=== PATIENT | male | born 1960 | race Two or more races ===

== ENCOUNTER 2019-02-18 02:11 | Emergency (ER) | payer MEDICAID ==
[~2019-02-18] VITALS: Ht 172.7 cm; Wt 100.9 kg
[~2019-02-18 02:11] MED LIST: METF-370 PO
[2019-02-18 03:21] LABS: Basophils # (auto) 0.1 uL; Basophils % (auto) 1.1 % (0.0-2.0); Eosinophils # (auto) 0 uL; Eosinophils % (auto) 0.4 % (0.0-7.0); Hematocrit 35.7 % (41.0-53.0); Hemoglobin 12.6 g/dL (13.5-17.5); Lymphocytes # (auto) 1.1 uL; Mean Corpuscular Hemoglobin 39.3 pg (28.0-32.0); Mean Corpuscular Hgb Conc. 35.2 g/dL (32.0-36.0); Mean Corpuscular Volume 111.6 fL (80.0-100.0); Monocytes # (auto) 0.5 uL; Monocytes % (auto) 5.2 % (0.0-12.0); Neutrophils # (auto) 8.3 uL; Neutrophils % (auto) 82.3 % (37.0-80.0); Platelet Count (auto) 103 10^3/uL (140-450); Red Cell Distribution Width 13.5 % (11.8-14.3); White Blood Cell 10.1 10^3/uL (4.4-10.8)
[2019-02-18 03:36] LABS: INR 1.32 (0.9-1.15)
[2019-02-18 03:39] LABS: Albumin 2.6 g/dL (3.4-5.0); Anion Gap 16 (5-15); BUN/Creatinine Ratio 15.8; Blood Urea Nitrogen 12 mg/dL (7-18); Calcium 7.7 mg/dL (8.5-10.1); Carbon Dioxide 21 mmol/L (21-32); Chloride 103 mmol/L (98-107); GFR African American 135 mL/min; GFR Non-African American 112 mL/min; Glucose 229 mg/dL (74-106); Lipase 163 U/L (73-393); Potassium 3.7 mmol/L (3.5-5.1); Sodium 140 mmol/L (136-145)
[2019-02-18 03:39] LABS: Urine Bacteria FEW /hpf (None Seen); Urine Blood Negative /uL (Negative); Urine Hyaline Cast FEW /lpf (0 - 2); Urine WBC 1 /hpf (0 - 3)
[2019-02-18 03:44] LABS: Alanine Aminotransferase 40 U/L (16-61); Alkaline Phosphatase 72 U/L (45-117); Aspartate Aminotransferase 60 U/L (15-37); Bilirubin, Total 1.9 mg/dL (0.2-1.0)
[2019-02-18] MEDS ORDERED: ONDANSETRON HCL 4 MG/2 ML VIAL IV ONE (10:15)
[2019-02-18] MEDS ORDERED: OCTREOTIDE ACETATE 500 MCG in SODIUM CHL 0.9% 99 ML IV SCH (10:15)
[2019-02-18] MEDS ORDERED: OCTREOTIDE ACETATE 100 MCG in SODIUM CHL 0.9% 50 ML IV ONE (10:15)
[2019-02-18] MEDS ORDERED: NOREPINEPHRINE 8 MG/250ML KIT 250 ML IV ONE (10:27)
[2019-02-18] MEDS ORDERED: ETOMIDATE (2MG/ML) 20ML VIAL IV ONE ×2 (10:30→10:31)
[2019-02-18] MEDS ORDERED: SUCCINYLCHOLINE CHLORIDE 20 MG/ML 10ML VIAL IV ONE ×2 (10:30→10:31)
[2019-02-18 10:48] LABS: Hemoglobin 10.1 g/dL (13.5-17.5)
[2019-02-18 10:49] LABS: Hematocrit 29.5 % (41.0-53.0)
[2019-02-18] MEDS ORDERED: MIDAZOLAM DRIP 50 mg/50mL 50 ML IV ONE (10:53)
[2019-02-18] MEDS ORDERED: LORazepam 2MG/ML-1ML VIAL IV PRN (11:00)
[2019-02-18] MEDS ORDERED: SODIUM CHLORIDE 0.9% 2,000 ML IV ONE (11:00)
[2019-02-18] MEDS ORDERED: MORPHINE SULFATE 4 MG/ML SYR/VIAL IV PRN ×2 (11:00)
[2019-02-18] MEDS ORDERED: PROMETHAZINE HCL 25 MG/ML 1ML IV PRN (11:00)
[2019-02-18] MEDS ORDERED: NITROGLYCERIN 0.4 MG SL TAB SL PRN (11:00)
[2019-02-18] MEDS ORDERED: PHYTONADIONE (VIT K)10 MG/ML 1ML VIAL SUBCUT ONE ×2 (11:00→13:30)
[2019-02-18] MEDS ORDERED: PANTOPRAZOLE 40 MG/10 ML VIAL INJ IV ONE (11:00)
[2019-02-18] MEDS ORDERED: MORPHINE SULF INJ 2 MG/ML SYRINGE 1ML IV PRN (11:00)
[2019-02-18] MEDS ORDERED: PROPOFOL 100 ML IV ONE (11:06)
[2019-02-18] MEDS ORDERED: EPINEPHrine HCL 1 MG/10 ML SYRG ONE (11:14)
[2019-02-18] MEDS ORDERED: PROPOFOL 100 ML IV SCH (12:56)
[2019-02-18] MEDS ORDERED: MIDAZOLAM DRIP 50 mg/50mL 50 ML IV SCH (12:56)
[2019-02-18] MEDS ORDERED: SODIUM CHLORIDE 0.9% 1,000 ML IV SCH (13:00)
[2019-02-18] MEDS ORDERED: NOREPINEPHRINE 8 MG/250ML KIT 250 ML IV SCH (13:00)
[2019-02-18 13:44] VITALS: BP 127/56
[2019-02-18] MEDS ORDERED: SODIUM BICARBONATE 8.4 % INJ 50ML VIAL IV ONE (13:45)
[2019-02-18] MEDS ORDERED: PANTOPRAZOLE 40 MG/10 ML VIAL INJ IV SCH (22:00)
[2019-02-18] MEDS ORDERED: CEFOTETAN 1GM/D5W 50ML BAG 50 ML IV SCH (22:00)
== END 2019-02-18 14:08 | disposition short-term general hospital (02) ==
LOC: ER 02:17 → OVERFLOW 02:18 → UNDOADMIN 02:18 → ER 14:08
DX: K92.2 Gastrointestinal hemorrhage, unspecified (principal); D50.0 Iron deficiency anemia secondary to blood loss (chronic); I95.9 Hypotension, unspecified; E11.65 Type 2 diabetes mellitus with hyperglycemia; I10 Essential (primary) hypertension; F17.210 Nicotine dependence, cigarettes, uncomplicated
CPT/HCPCS: 31500; 36415; 36430; 36600; 51702; 71045; 74018; 74176; 80053; 81001; 82805; 83690; 83880; 84484; 85014; 85018; 85025; 85610; 85730; 86850; 86900; 86901; 86920; 87070; 87205; 93005; 96365; 96368; 96372; 96375; 99291; 99292; C9113; J0330; J2250; J2405; J2704; J3430; P9016; P9017; 94002

== ENCOUNTER 2019-03-17 14:07 | Inpatient (IN) | payer BC, MEDICAID ==
[~2019-03-17] VITALS: Ht 172.7 cm; Wt 53.0 kg
[2019-03-17] MEDS ORDERED: MORPHINE SULFATE 4 MG/ML SYR/VIAL IV ONE (15:00)
[2019-03-17] MEDS ORDERED: ONDANSETRON HCL 4 MG/2 ML VIAL IV ONE (15:00)
[2019-03-17 15:12] LABS: Basophils # (auto) 0 uL; Eosinophils # (auto) 0.2 uL; Eosinophils % (auto) 3.6 % (0.0-7.0); Mean Corpuscular Volume 105.6 fL (80.0-100.0); Monocytes # (auto) 0.7 uL; Neutrophils # (auto) 3.7 uL; Nucleated Red Blood Cells % 0.1 %
[2019-03-17 15:14] LABS: Basophils % (auto) 0.6 % (0.0-2.0); Hematocrit 35.6 % (41.0-53.0); Hemoglobin 11.9 g/dL (13.5-17.5); Lymphocytes # (auto) 1.3 uL; Lymphocytes % (auto) 22.3 % (10.0-50.0); Mean Corpuscular Hemoglobin 35.2 pg (28.0-32.0); Mean Corpuscular Hgb Conc. 33.4 g/dL (32.0-36.0); Monocytes % (auto) 11.8 % (0.0-12.0); Neutrophils % (auto) 61.7 % (37.0-80.0); Platelet Count (auto) 86 10^3/uL (140-450); Red Blood Cells 3.37 10^6/uL (4.5-5.90)
[2019-03-17 15:17] LABS: Red Cell Distribution Width 21.1 % (11.8-14.3)
[2019-03-17 15:18] LABS: Alanine Aminotransferase 46 U/L (16-61); Albumin 2.5 g/dL (3.4-5.0); Anion Gap 7 (5-15); Aspartate Aminotransferase 52 U/L (15-37); Blood Urea Nitrogen 4 mg/dL (7-18); Calcium 7.8 mg/dL (8.5-10.1); Carbon Dioxide 25 mmol/L (21-32); Chloride 102 mmol/L (98-107); Glucose 227 mg/dL (74-106); Magnesium 1.7 mg/dL (1.6-2.6); Potassium 3.7 mmol/L (3.5-5.1); Sodium 134 mmol/L (136-145)
[2019-03-17 15:23] LABS: Alkaline Phosphatase 125 U/L (45-117); BUN/Creatinine Ratio 4.2; Bilirubin, Total 1.3 mg/dL (0.2-1.0); GFR African American 103 mL/min; GFR Non-African American 86 mL/min; INR 1.19 (0.9-1.15); Partial Thromboplastin Time 30.8 sec (23.64-32.05); Total Protein 7.7 g/dL (6.4-8.2)
[2019-03-17] MEDS ORDERED: TEMAZEPAM 15 MG CAP PO PRN (16:30)
[2019-03-17] MEDS ORDERED: MORPHINE SULFATE 4 MG/ML SYR/VIAL IV PRN (16:30)
[2019-03-17] MEDS ORDERED: LACTULOSE 20Gm/30ML SOLN PO PRN (16:30)
[2019-03-17] MEDS ORDERED: MORPHINE SULF INJ 2 MG/ML SYRINGE 1ML IV PRN (16:30)
[2019-03-17] MEDS ORDERED: NITROGLYCERIN 0.4 MG SL TAB SL PRN (16:30)
[2019-03-17] MEDS: SODIUM CHLORIDE 0.9% 1,000 ML IV SCH (17:29)
[2019-03-17 17:59] LABS: CRP High Sensitivity 0.94 mg/dL (< 0.3)
[2019-03-17 19:36] VITALS: BP 120/67
--- NOTE | 2019-03-17 19:43 | NUR ---
Telemetry admit from ER ZOLTAN CARBALLO admitted to Telemetry unit after SBAR received. Patient oriented to Ayush Gary, primary RN, unit, room, bed, and unit policies regarding patient care and visiting hours. Patient now on continuous telemetry monitoring, tele box # 25 and telemetry reading on arrival to unit is sinus rhythm. Patient weighed by bedscale and encouraged to call if they need something. All questions and concerns addressed, patient verbalized understanding.
[2019-03-17 21:00] VITALS: BP 107/66
[2019-03-17] MEDS: MORPHINE SULFATE 4 MG/ML SYR/VIAL IV PRN (21:50)
[2019-03-17 23:06] LABS: Alcohol, Urine < 3.0 mg/dL (0-5); Amphetamine Screen, Urine NEGATIVE (NEGATIVE); Barbiturate Scree,Urine NEGATIVE (NEGATIVE); Benzodiazephine Screen, Urine NEGATIVE (NEGATIVE); Cannabinoid Screen, Urine NEGATIVE (NEGATIVE); Cocaine Screen, Urine NEGATIVE (NEGATIVE); Opiate Scree,Urine POSITIVE (NEGATIVE); Phencyclidine Screen, Urine NEGATIVE (NEGATIVE)
[2019-03-18] VITALS (7 sets, daily range): BP systolic 116–129; BP diastolic 67–75
[2019-03-18] MEDS: MORPHINE SULFATE 4 MG/ML SYR/VIAL IV PRN ×2 (02:25→08:25)
[2019-03-18 05:56] LABS: Basophils # (auto) 0 uL; Basophils % (auto) 0.5 % (0.0-2.0); Eosinophils # (auto) 0.2 uL; Eosinophils % (auto) 5.6 % (0.0-7.0); Hematocrit 32.4 % (41.0-53.0); Hemoglobin 11.3 g/dL (13.5-17.5); Lymphocytes # (auto) 1.2 uL; Lymphocytes % (auto) 27.9 % (10.0-50.0); Mean Corpuscular Hemoglobin 36.4 pg (28.0-32.0); Mean Corpuscular Hgb Conc. 34.8 g/dL (32.0-36.0); Mean Corpuscular Volume 104.7 fL (80.0-100.0); Monocytes # (auto) 0.5 uL; Monocytes % (auto) 12.2 % (0.0-12.0); Neutrophils # (auto) 2.4 uL; Neutrophils % (auto) 53.8 % (37.0-80.0); Nucleated Red Blood Cells % 0.1 %; Platelet Count (auto) 54 10^3/uL (140-450); Red Blood Cells 3.09 10^6/uL (4.5-5.90); White Blood Cell 4.4 10^3/uL (4.4-10.8)
[2019-03-18 05:58] LABS: Red Cell Distribution Width 20.9 % (11.8-14.3)
[2019-03-18 06:18] LABS: Chloride 105 mmol/L (98-107); Potassium 3.6 mmol/L (3.5-5.1); Sodium 137 mmol/L (136-145)
[2019-03-18 06:28] LABS: Alanine Aminotransferase 37 U/L (16-61); Albumin 2.5 g/dL (3.4-5.0); Alkaline Phosphatase 109 U/L (45-117); Anion Gap 7 (5-15); Aspartate Aminotransferase 43 U/L (15-37); BUN/Creatinine Ratio 5.9; Bilirubin, Total 1.6 mg/dL (0.2-1.0); Blood Urea Nitrogen 3 mg/dL (7-18); Calcium 7.4 mg/dL (8.5-10.1); Carbon Dioxide 25 mmol/L (21-32); Cholesterol 81 mg/dL (< 200); GFR African American 215 mL/min; GFR Non-African American 177 mL/min; Glucose 113 mg/dL (74-106); HDL Cholesterol 35 mg/dL (40-59); LDL Cholesterol 50 mg/dL (< 100); Total Protein 6.7 g/dL (6.4-8.2); Triglycerides 40 mg/dL (< 150)
[2019-03-18] MEDS: SODIUM CHLORIDE 0.9% 1,000 ML IV SCH ×2 (06:30→18:55)
--- NOTE | 2019-03-18 07:30 | NUR ---
Opening Shift Note RECEIVED REPORT FROM NOC RN. Assumed care of patient, awake and alert. No S/S of distress/SOB or pain. BED IN LOWEST, LOCKED POSITION WITH SIDERAILS UP x2 AND CALL LIGHT WITHIN REACH. Instructed on POC and to call for assist PRN, will continue to monitor for changes Q1hr and PRN.
[2019-03-18] MEDS ORDERED: LACT10SO60 PO (08:35)
[2019-03-18] MEDS: PANTOPRAZOLE 40 MG TAB PO SCH (09:47)
[2019-03-18] MEDS: NITROGLYCERIN 0.2MG/HR TOPICAL PATCH TD SCH (09:48)
--- NOTE | 2019-03-18 12:17 | NUR ---
Received referral to pt and . They do not speak Serbian. called daughter, Sharmila and social work program coordinator spoke with her on the phone. worker's compensation claims examiner explained the form to the daughter. The daughter indicated that she understood. Gave the form to the .
--- NOTE | 2019-03-18 12:20 | NUR ---
PATIENT C/O CHEST PAIN. WILL PERFORM EKG.
--- NOTE | 2019-03-18 12:27 | NUR ---
EKG PERFORMED. EKG READ BY MALLORY HERMOSILLO. DR. HERMOSILLO ADVISES THAT EKG IS NORMAL.
--- NOTE | 2019-03-18 12:57 | NUR ---
DR. TURNER AT BEDSIDE.
--- NOTE | 2019-03-18 12:57 | NUR ---
DR. WHEAT AT BEDSIDE.
--- NOTE | 2019-03-18 13:15 | NUR ---
DR. HOLGUIN AT BEDSIDE.
[2019-03-18] MEDS: KETOROLAC TROMETH 30 MG/ML 1ML VIAL IV PRN (13:29)
[2019-03-18] MEDS: PROPRANOLOL HCL 20 MG TAB PO SCH ×2 (14:39→22:09)
--- NOTE | 2019-03-18 16:00 | NUR ---
PATIENT REPORTS THAT HE WALKS FINE AND DOES NOT NEED P.T.
--- NOTE | 2019-03-18 19:20 | NUR ---
Opening Shift Note Received report from Raymond FIGUEROA. Assumed care of patient, awake and alert. No S/S of distress/SOB or pain. Instructed on POC and to call for assist PRN, will continue to monitor for changes Q1hr and PRN.
[2019-03-18] MEDS ORDERED: ONDANSETRON HCL 4 MG/2 ML VIAL IV PRN (21:00)
--- NOTE | 2019-03-18 21:00 | NUR ---
Temp is 100.6, cooling measures initiated, will continue to monitor.
[2019-03-18] MEDS: COLCHICINE 0.6 MG CAP PO SCH (22:08)
--- NOTE | 2019-03-18 22:20 | NUR ---
Latest temp is 99.3.
[2019-03-18] MEDS ORDERED: ACETAMINOPHEN 500 MG TAB PO PRN (22:45)
[2019-03-19 05:09] VITALS: BP 122/64
[2019-03-19] MEDS: KETOROLAC TROMETH 30 MG/ML 1ML VIAL IV PRN (06:25)
[2019-03-19] MEDS: PROPRANOLOL HCL 20 MG TAB PO SCH (06:26)
[2019-03-19 06:54] LABS: Basophils # (auto) 0 uL; Eosinophils # (auto) 0.2 uL; Hemoglobin 11.2 g/dL (13.5-17.5); Lymphocytes # (auto) 1.3 uL
[2019-03-19 07:00] LABS: Basophils % (auto) 0.3 % (0.0-2.0); Eosinophils % (auto) 3.5 % (0.0-7.0); Hematocrit 31.7 % (41.0-53.0); Mean Corpuscular Hemoglobin 36.7 pg (28.0-32.0); Mean Corpuscular Hgb Conc. 35.2 g/dL (32.0-36.0); Mean Corpuscular Volume 104.2 fL (80.0-100.0); Monocytes # (auto) 0.8 uL; Monocytes % (auto) 10.8 % (0.0-12.0); Neutrophils # (auto) 4.8 uL; Neutrophils % (auto) 67.4 % (37.0-80.0); Nucleated Red Blood Cells % 0.1 %; Platelet Count (auto) 66 10^3/uL (140-450); Red Blood Cells 3.05 10^6/uL (4.5-5.90); Red Cell Distribution Width 20.4 % (11.8-14.3); White Blood Cell 7.1 10^3/uL (4.4-10.8)
[2019-03-19 07:11] LABS: BUN/Creatinine Ratio 9.8; Calcium 7.5 mg/dL (8.5-10.1); Magnesium 1.9 mg/dL (1.6-2.6); Potassium 3.7 mmol/L (3.5-5.1)
--- NOTE | 2019-03-19 08:00 | NUR ---
Opening Shift Note Assumed care of patient, awake and alert. No S/S of distress/SOB, 6/10 anterior chest wall pain. Patient have been medicated with Toradol 30mg IV at 0625 as reported by warehouse shift supervisor. Instructed on POC and to call for assist PRN, will continue to monitor for changes Q1hr and PRN.
[2019-03-19] MEDS: SODIUM CHLORIDE 0.9% 1,000 ML IV SCH (08:18)
[2019-03-19 09:00] VITALS: BP 128/67
[2019-03-19] MEDS ORDERED: COLCHICINE 0.6 MG CAP PO ONE (09:00)
[2019-03-19] MEDS: NITROGLYCERIN 0.2MG/HR TOPICAL PATCH TD SCH (10:00)
[2019-03-19] MEDS: COLCHICINE 0.6 MG CAP PO SCH (10:00)
--- NOTE | 2019-03-19 11:00 | NUR ---
No complaints of chest pain at this time.
[2019-03-19] MEDS: PANTOPRAZOLE 40 MG TAB PO SCH (11:07)
--- NOTE | 2019-03-19 12:27 | NUR ---
Latest Temp-98.0. Will continue care.
--- NOTE | 2019-03-19 14:00 | NUR ---
Discharge instructions given as ordered. Encourage to follow up with PMD Dr. Yaya Maria in 1-2 weeks #[phone] as instructed. All questions and concerns addressed. Patient verbalized understanding. Medication reconciliation form completed and copy given to patient. IV removed with catheter intact, pressure dressing applied. Telemetry unit returned to ICU. Patient taken to vehicle via wheelchair with all personal belongings, accompanied by staff and family member. No distress noted at time of departure.
== END 2019-03-19 14:00 | disposition home or self-care (01) | DRG 314 ==
LOC: ER 14:13 → TELE 14:14 → TELE-EAST 19:43
PROVIDERS: ADMIT Internal Medicine; ATTEND Internal Medicine
DX: I31.9 Disease of pericardium, unspecified (principal); E43 Unspecified severe protein-calorie malnutrition; I24.9 Acute ischemic heart disease, unspecified; K76.6 Portal hypertension; F17.210 Nicotine dependence, cigarettes, uncomplicated; I10 Essential (primary) hypertension; E11.65 Type 2 diabetes mellitus with hyperglycemia; K74.60 Unspecified cirrhosis of liver; F10.21 Alcohol dependence, in remission; Z71.41 Alcohol abuse counseling and surveillance of alcoholic; Z90.49 Acquired absence of other specified parts of digestive tract; Z83.3 Family history of diabetes mellitus; Z82.61 Family history of arthritis
CPT/HCPCS: 36415; 71045; 80048; 80053; 80061; 80307; 82550; 83735; 84443; 84484; 85025; 85379; 85610; 85652; 85730; 86141; 87081; 93005; 93306; 94761; 96374; 96375; 96376; G0378; J1885; J2405

== ENCOUNTER 2020-02-06 15:47 | Emergency (ER) | payer BC, OTHER ==
[~2020-02-06] VITALS: Ht 172.7 cm; Wt 90.7 kg
[~2020-02-06 15:47] MED LIST changes: +LACT10SO60 PO
[2020-02-06] MEDS ORDERED: ASPirin 81 mg TAB PO ONE (16:45)
[2020-02-06 18:35] LABS: Basophils # (auto) 0 10 ^3/uL (0-0.2); Hematocrit 39.1 % (41.0-53.0); Hemoglobin 13.3 g/dL (13.5-17.5); Lymphocytes # (auto) 1.7 10 ^3/uL (0.4-5.4); Mean Corpuscular Hgb Conc. 34.1 g/dL (32.0-36.0); Monocytes # (auto) 0.7 10 ^3/uL (0-1.3); Nucleated Red Blood Cells % 0.1 %; White Blood Cell 5.3 10^3/uL (4.4-10.8)
[2020-02-06 18:37] LABS: Basophils % (auto) 0.6 % (0.0-2.0); Eosinophils # (auto) 0.2 10 ^3/uL (0-0.8); Eosinophils % (auto) 4.5 % (0.0-7.0); Lymphocytes % (auto) 32.6 % (10.0-50.0); Mean Corpuscular Hemoglobin 36.9 pg (28.0-32.0); Mean Corpuscular Volume 108.2 fL (80.0-100.0); Monocytes % (auto) 13.9 % (0.0-12.0); Neutrophils # (auto) 2.5 10 ^3/uL (1.6-8.6); Neutrophils % (auto) 48.4 % (37.0-80.0); Platelet Count (auto) 87 10^3/uL (140-450); Red Blood Cells 3.61 10^6/uL (4.5-5.90); Red Cell Distribution Width 13.6 % (11.8-14.3)
[2020-02-06 18:54] LABS: Anion Gap 4 (5-15); Blood Urea Nitrogen 6 mg/dL (7-18); Calcium 8.3 mg/dL (8.5-10.1); Carbon Dioxide 27 mmol/L (21-32); Chloride 108 mmol/L (98-107); Glucose 160 mg/dL (74-106); Potassium 3.7 mmol/L (3.5-5.1); Sodium 139 mmol/L (136-145)
[2020-02-06 19:01] LABS: Alanine Aminotransferase 29 U/L (16-61); Alkaline Phosphatase 77 U/L (45-117); Aspartate Aminotransferase 25 U/L (15-37); BUN/Creatinine Ratio 8.3; Bilirubin, Total 0.9 mg/dL (0.2-1.0); GFR African American 144 mL/min; GFR Non-African American 119 mL/min
[2020-02-06 22:00] VITALS: BP 109/62
[2020-02-06] MEDS ORDERED: HYDROcodone-ACET 10/325MG TAB PO ONE (23:15)
== END 2020-02-06 23:14 | disposition home or self-care (01) ==
LOC: ER 15:47
DX: R07.89 Other chest pain (principal); F41.9 Anxiety disorder, unspecified; F17.210 Nicotine dependence, cigarettes, uncomplicated
CPT/HCPCS: 36415; 71046; 80053; 84484; 85025; 93005

== ENCOUNTER 2023-03-17 11:50 | Inpatient (IN) | payer MEDICAID, OTHER ==
[~2023-03-17] VITALS: Ht 172.7 cm; Wt 102.1 kg
[2023-03-17] MEDS ORDERED: ASPirin 325 MG TAB PO ONE (12:00)
[2023-03-17] MEDS ORDERED: NITROGLYCERIN 0.4 MG SL TAB SL ONE (12:00)
[2023-03-17 12:18] LABS: Basophils # (auto) 0 10 ^3/uL (0-0.2); Eosinophils # (auto) 0.4 10 ^3/uL (0-0.8); Mean Corpuscular Hemoglobin 36.5 pg (28.0-32.0); Mean Corpuscular Hgb Conc. 35.4 g/dL (32.0-36.0); Monocytes # (auto) 0.5 10 ^3/uL (0-1.3)
[2023-03-17 12:20] LABS: Basophils % (auto) 0.6 % (0.0-2.0); Eosinophils % (auto) 6.1 % (0.0-7.0); Hematocrit 34.9 % (41.0-53.0); Hemoglobin 12.4 g/dL (13.5-17.5); Lymphocytes # (auto) 1.4 10 ^3/uL (0.4-5.4); Lymphocytes % (auto) 23.9 % (10.0-50.0); Monocytes % (auto) 8.3 % (0.0-12.0); Neutrophils # (auto) 3.5 10 ^3/uL (1.6-8.6); Neutrophils % (auto) 61.1 % (37.0-80.0); Red Blood Cells 3.39 10^6/uL (4.5-5.90); Red Cell Distribution Width 13.1 % (11.8-14.3); White Blood Cell 5.8 10^3/uL (4.4-10.8)
[2023-03-17 12:22] LABS: Urine Bacteria NONE SEEN /hpf (None Seen); Urine Blood 3+ /uL (Negative); Urine Clarity Clear (Clear); Urine Color Colorless (Yellow); Urine Protein, UAD TRACE (Negative); Urine Specific Gravity 1.008 (1.001-1.035); Urine Urobilinogen Normal (Negative); Urine WBC 1 /hpf (0 - 3)
[2023-03-17 12:36] LABS: Alanine Aminotransferase 37 U/L (7-40); Alkaline Phosphatase 59 U/L (46-116); Anion Gap 7 (5-15); Aspartate Aminotransferase 38 U/L (13-40); BUN/Creatinine Ratio 11.9 (10.0-20.0); Blood Urea Nitrogen 18 mg/dL (9-23); Calcium 9.2 mg/dL (8.5-10.1); Carbon Dioxide 23 mmol/L (20-30); Chloride 107 mmol/L (98-107); Glucose 170 mg/dL (74-106); INR 1.1 (0.9-1.15); Partial Thromboplastin Time 27.7 SEC (24.5-34.5); Potassium 4.8 mmol/L (3.5-5.1); Prothrombin Time 11.5 sec (9.3-11.8); Sodium 137 mmol/L (136-145); Total Protein 7.3 g/dL (5.7-8.2)
[2023-03-17 13:20] VITALS: PULSE 91; RESP 13; O2SAT 95
[2023-03-17 14:10] LABS: Magnesium 1.8 mg/dL (1.6-2.6)
[2023-03-17] MEDS ORDERED: NITROGLYCERIN 0.4 MG SL TAB SL PRN (14:45)
[2023-03-17] MEDS ORDERED: DOCUSATE SOD 100 MG CAP PO PRN (14:45)
[2023-03-17] MEDS ORDERED: ACETAMINOPHEN 325 MG TAB PO PRN (14:45)
[2023-03-17] MEDS ORDERED: ONDANSETRON HCL 4 MG/2 ML VIAL IV PRN (14:45)
[2023-03-17] MEDS ORDERED: MORPHINE SULFATE INJ 2 MG/ml SYRG IV PRN (14:45)
[2023-03-17] MEDS: MORPHINE SULFATE INJ 2 MG/ml SYRG IV PRN ×2 (15:07→17:39)
[2023-03-17] MEDS ORDERED: hydrALAZINE HCL 20 MG/ML VL IV PRN (16:30)
[2023-03-17] MEDS ORDERED: SODIUM CHLORIDE 0.9% 1,000 ML IV ONE (16:45)
[2023-03-17 17:15] LABS: LDL Cholesterol 62 mg/dL (< 100); Triglycerides 51 mg/dL (< 150)
[2023-03-17 17:17] LABS: Cholesterol 139 mg/dL (< 200); HDL Cholesterol 69 mg/dL (40-59)
[2023-03-17 19:25] VITALS: PULSE 99; RESP 12; O2SAT 97
[2023-03-17] MEDS: ATORVASTATIN 20 MG TAB PO SCH (21:42)
[2023-03-17] MEDS: METOPROLOL TARTRATE 25 MG TAB PO SCH (21:43)
[2023-03-17] MEDS: HYDROcodone-ACET 5/325MG TAB PO PRN (21:46)
[2023-03-17 22:00] VITALS: BP 165/75; PULSE 82; RESP 14; TEMP 98.6; O2SAT 97
[2023-03-17] MEDS ORDERED: ATORVASTATIN 20 MG TAB PO SCH (22:00)
[2023-03-17] MEDS ORDERED: PNEUMOCOCCAL VACC POLYS 25 MCG/0.5 ML VIAL IM ONE (22:15)
[2023-03-18] VITALS (7 sets, daily range): BP systolic 117–148; BP diastolic 56–80; PULSE 54–76; RESP 14–22; TEMP 97.7–98.6; O2SAT 97–99
[2023-03-18 06:01] LABS: Basophils # (auto) 0 10 ^3/uL (0-0.2); Eosinophils # (auto) 0.4 10 ^3/uL (0-0.8); Hemoglobin 11.3 g/dL (13.5-17.5); Lymphocytes # (auto) 1.1 10 ^3/uL (0.4-5.4); Monocytes # (auto) 0.5 10 ^3/uL (0-1.3)
[2023-03-18 06:05] LABS: Basophils % (auto) 0.6 % (0.0-2.0); Eosinophils % (auto) 7.9 % (0.0-7.0); Mean Corpuscular Hemoglobin 36.3 pg (28.0-32.0); Mean Corpuscular Hgb Conc. 35.2 g/dL (32.0-36.0); Mean Corpuscular Volume 103.3 fL (80.0-100.0); Monocytes % (auto) 10.2 % (0.0-12.0); Neutrophils # (auto) 2.9 10 ^3/uL (1.6-8.6); Neutrophils % (auto) 59.3 % (37.0-80.0); Red Cell Distribution Width 13.5 % (11.8-14.3)
[2023-03-18 06:14] LABS: Alanine Aminotransferase 32 U/L (7-40); Albumin 3.8 g/dL (3.2-4.8); Alkaline Phosphatase 53 U/L (46-116); Anion Gap 7 (5-15); Aspartate Aminotransferase 34 U/L (13-40); BUN/Creatinine Ratio 9.4 (10.0-20.0); Blood Urea Nitrogen 13 mg/dL (9-23); Calcium 8.9 mg/dL (8.5-10.1); Carbon Dioxide 23 mmol/L (20-30); Chloride 107 mmol/L (98-107); Glucose 145 mg/dL (74-106); LDL Cholesterol 57 mg/dL (< 100); Potassium 4.1 mmol/L (3.5-5.1); Sodium 137 mmol/L (136-145); Triglycerides 76 mg/dL (< 150)
[2023-03-18 06:15] LABS: Bilirubin, Total 0.8 mg/dL (0.2-1.0); Cholesterol 130 mg/dL (< 200); HDL Cholesterol 62 mg/dL (40-59); Total Protein 7.1 g/dL (5.7-8.2)
[2023-03-18] MEDS ORDERED: ADENOSINE 86 MG in GIVE UN-DILUTED 0 ML IV ONE (07:45)
[2023-03-18] MEDS: ASPirin 81 mg TAB PO SCH (10:00)
[2023-03-18] MEDS: METOPROLOL TARTRATE 25 MG TAB PO SCH ×2 (10:00→21:09)
[2023-03-18] MEDS ORDERED: ASPirin-EC 81 mg tab PO SCH (10:00)
[2023-03-18] MEDS: HYDROcodone-ACET 5/325MG TAB PO PRN ×2 (13:26→21:12)
[2023-03-18] MEDS: ATORVASTATIN 20 MG TAB PO SCH (21:09)
[2023-03-19 05:00] VITALS: BP 133/71; PULSE 71; RESP 14; TEMP 98.1; O2SAT 97
[2023-03-19 08:00] VITALS: BP 139/74; PULSE 53; PULSE 69; RESP 15; RESP 17; TEMP 97.7; O2SAT 98
[2023-03-19] MEDS: METOPROLOL TARTRATE 25 MG TAB PO SCH (08:46)
[2023-03-19] MEDS: ASPirin 81 mg TAB PO SCH (08:46)
[2023-03-19 09:20] LABS: Hepatitis B Surface Antigen Negative (Negative)
[2023-03-19 09:42] LABS: Hepatitis C Antibody Negative (Negative)
[2023-03-19 13:00] VITALS: BP 129/70; PULSE 64; RESP 17; TEMP 98.5; O2SAT 98
[2023-03-19 17:00] VITALS: BP 144/74; PULSE 62; RESP 18; TEMP 98.2; O2SAT 96
== END 2023-03-19 18:22 | disposition home or self-care (01) | DRG 203 ==
LOC: ER 11:50 → TELE 14:46 → TELE-EAST 21:19
PROVIDERS: ADMIT Nurse Practitioner Family; ATTEND Internal Medicine Geriatric Medicine
DX: R07.89 Other chest pain (principal); N17.9 Acute kidney failure, unspecified; E11.22 Type 2 diabetes mellitus with diabetic chronic kidney disease; E66.9 Obesity, unspecified; N18.9 Chronic kidney disease, unspecified; F17.210 Nicotine dependence, cigarettes, uncomplicated; I12.9 Hypertensive chronic kidney disease with stage 1 through stage 4 chronic kidney disease, or unspecified chronic kidney disease; M62.838 Other muscle spasm; R94.31 Abnormal electrocardiogram [ECG] [EKG]; Z83.3 Family history of diabetes mellitus; Z68.34 Body mass index [BMI] 34.0-34.9, adult
CPT/HCPCS: 36415; 71045; 78452; 80053; 80061; 81001; 82962; 83036; 83735; 83880; 84443; 84484; 85025; 85379; 85610; 85730; 86803; 87340; 93005; 93017; 93306; 96374; G0378; J0153; J2405

== ENCOUNTER 2024-07-19 01:23 | Emergency (ER) | payer MEDICAID ==
[~2024-07-19] VITALS: Ht 172.7 cm; Wt 96.5 kg
[2024-07-19] MEDS: HYDROcodone-ACET 5/325MG TAB PO ONE (04:25)
[2024-07-19] MEDS: ONDANSETRON ODT 4 MG TAB PO ONE (04:25)
[2024-07-19 04:26] VITALS: O2SAT 96
[2024-07-19] MEDS ORDERED: ACE3T PO (04:27)
[2024-07-19] MEDS ORDERED: CYCL-837 PO (04:27)
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
--- NOTE | 2024-07-19 05:07 | DVH ---
EXAM: CT Head Without Intravenous Contrast CLINICAL INDICATION: head injury TECHNIQUE: Axial computed tomography images of the head/brain without intravenous contrast. This CT exam was performed using one or more of the following dose reduction techniques: automated exposure control, adjustment of the mA and/or kV according to patient size, and/or use of iterative reconstru ction technique. CONTRAST: COMPARISON: None FINDINGS: BRAIN AND EXTRA-AXIAL SPACES: Unremarkable. No hemorrhage. No significant white matter disease. No edema. No ventriculomegaly. BONES/JOINTS: Unremarkable. No acute fracture. SOFT TISSUES: Unremarkable. SINUSES: Unremarkable as viasualized. No acute sinusitis. MASTOID AIR CELLS: Unremarkable as visualized. No mastoid effusion. OTHER FINDINGS: . None. . IMPRESSION: No acute intracranial hemorrhage, midline shift or mass effect.
--- NOTE | 2024-07-19 05:09 | DVH ---
EXAM: XR Lumbosacral Spine, 2 or 3 Views CLINICAL INDICATION: lumbar back pain TECHNIQUE: Frontal and lateral views of the lumbar spine and sacrum. COMPARISON: None FINDINGS: VERTEBRAE: Multilevel endplate degenerative changes of the lumbar spine. Normal alignment. No acu te fracture. SACRUM/COCCYX: Unremarkable as visualized. No acute fracture. DISC SPACES: Posterior fusion of the lower lumbar spine from L4-S1 with disc spacers. Intact hardw are. SOFT TISSUES: Unremarkable. OTHER FINDINGS: . IMPRESSION: No acute fracture.
--- NOTE | 2024-07-19 05:10 | DVH ---
EXAM: XR Left Knee, 3 Views CLINICAL INDICATION: left knee pain TECHNIQUE: Three views of the left knee. COMPARISON: None FINDINGS: BONES/JOINTS: Unremarkable. No acute fracture. No dislocation. SOFT TISSUES: Unremarkable. OTHER FINDINGS: . None. . IMPRESSION: No acute fracture.
[2024-07-19 05:17] VITALS: BP 158/95; PULSE 94; RESP 17; O2SAT 95
--- NOTE | 2024-07-19 05:18 | DVH ---
EXAM: CT CERVICAL WITHOUT CONTRAST INDICATION: neck pain EXAM DATE: 07/19/2024 04:37 AM COMPARISON: None TECHNIQUE: Multiple axial CT images of the cervical spine were obtained using bone algorithm. Sagitta l and coronal reformatting was done. Bone and soft tissue windows were reviewed. Radiation Dose Information: CT Dose: CTDI volume is 24.2 mGy. Dose-length product is 573.2 mGy*cm FINDINGS: The cervical alignment is intact. Curvature is maintained. No acute cervical spine fracture is identi fied. The vertebral body heights are intact. No suspicious osseous lesions are identified. Multilevel intervertebral disc space narrowing of the cervical spine. No significant spinal stenosis. Mild multilevel neural foraminal stenosis. There is no prevertebral soft tissue swelling. The lung apices are clear. IMPRESSION: 1. No evidence of acute cervical spine fracture or traumatic malalignment. All CT scans at this medical facility are performed using dose modulation techniques as appropriate t o a performed exam including the following: Automated exposure control was utilized; adjustment of th e MA and/or KV according to patient size; and use of iterative reconstruction technique.
== END 2024-07-19 05:24 | disposition home or self-care (01) ==
LOC: ER 01:23
DX: S39.012A Strain of muscle, fascia and tendon of lower back, initial encounter (principal); S16.1XXA Strain of muscle, fascia and tendon at neck level, initial encounter; S00.80XA Unspecified superficial injury of other part of head, initial encounter; E11.9 Type 2 diabetes mellitus without complications; Z90.49 Acquired absence of other specified parts of digestive tract; V89.2XXA Person injured in unspecified motor-vehicle accident, traffic, initial encounter; Y93.89 Activity, other specified; Y92.89 Other specified places as the place of occurrence of the external cause; Y99.8 Other external cause status
CPT/HCPCS: 70450; 72100; 72125; 73562; 99284; Q0162

== ENCOUNTER 2025-03-23 01:17 | Inpatient (IN) | payer MEDICAID ==
[~2025-03-23] VITALS: Ht 172.7 cm; Wt 91.7 kg
[~2025-03-23 01:17] MED LIST changes: +ACE3T PO; +CYCL-837 PO; -LACT10SO60 PO; -METF-370 PO
[2025-03-23 02:00] LABS: Hemoglobin 12.4 g/dL (13.5-17.5)
[2025-03-23 02:01] LABS: Hematocrit 35.4 % (41.0-53.0); Mean Corpuscular Hemoglobin 37.3 pg (28.0-32.0); Mean Corpuscular Volume 106.3 fL (80.0-100.0); Nucleated Red Blood Cells % 0.1 %
[2025-03-23 02:30] LABS: Albumin 3.7 g/dL (3.2-4.8); Alkaline Phosphatase 108 U/L (46-116); Anion Gap 14 (5-15); BUN/Creatinine Ratio 7.3 (10.0-20.0); Bilirubin, Total 0.9 mg/dL (0.2-1.0); Blood Urea Nitrogen 9 mg/dL (9-23); Calcium 9.2 mg/dL (8.7-10.4); Carbon Dioxide 27 mmol/L (20-31); Potassium 4.1 mmol/L (3.5-5.1); Sodium 137 mmol/L (136-145); Total Protein 7.8 g/dL (5.7-8.2)
[2025-03-23 02:47] LABS: Lactic Acid w/Reflex 3.6 mmol/L (0.4-2.0)
[2025-03-23 02:49] LABS: Alanine Aminotransferase 41 U/L (7-40); Chloride 96 mmol/L (98-107); Glucose 412 mg/dL (74-106); Lipase 82 U/L (12-53)
--- NOTE | 2025-03-23 02:49 | ED.PDOC ---
GI ASSESSMENT HPI Comments HPI: 64 year old male presents to the ED with a chief complaint of abdominal pain onset last night about 6 hours prior to ED arrival. Patient states he ate raw clams, shortly after began experiencing nausea/vomiting, described emesis black color, about 5 episodes emesis. He states bowel is normal color. Patient's son who also ate clams, is currently experiencing diarrhea. Denies diarrhea, melena, blood in stool, fever, chills, chest pain, shortness of breath, headache, dizziness, dysuria, hematuria, hematemesis. No other symptoms or modifying factors present at this time. Initial Vitals BP: 153/92 HR: 98 RR: 20 O2: 99% Temp: 98.2F Past Medical History: DM Past Surgical History: appendectomy, back surgery Social History: Denies ETOH, smoking, and drug use. Medications: Denies Allergies: NKDA HPI: Poor Historian. Nausea and vomiting, no diarrhea. After eating uncooked clamps. Son is sick with diarrhea after eating the same food. Patient states he does not take any medications. REVIEW OF SYSTEMS: CONSTITUTIONAL: Denies acute: fever, diaphoresis, chills, generalized weakness. HEAD: Denies acute: headache, photophobia Eyes: Denies acute: Double vision, vision loss, eye pain, eye discharge. EARS: Denies acute: tinnitus, hearing loss, ear discharge, ear pain, THROAT: Denies acute: sore throat, swelling, difficulty swallowing , pain with swallowing, change in voice. NECK: Denies acute: neck pain, neck swelling, stiff neck. HEART: Denies acute : chest pain, palpitations, LUNGS: Denies acute: SOB, wheezing, cough, hemoptysis ABDOMEN: Denies acute: diarrhea, melena , hematemesis, hematochezia SKIN: Denies acute: rash, redness, lesions, itchiness. EXTREMITIES: Denies acute: calf pain, numbness, tingling, weakness, denies pain in extremity. Denies acute: Low back pain. Neuro: Denies acute: focal neurological deficit, motor or sensory focal neurological deficit, tremors, seizure like activity, confusion, dizziness, change in mental status, loss of bowel or bladder function, cauda equina like symptoms. : Denies acute: dysuria, hematuria, flank pain, increase in urinary frequency. PSYCH: Denies acute: hallucination, suicidal ideation, homicidal ideation. PHYSICAL EXAM: General: -----mild---acute distress, awake and alert. Head: normocephalic, atraumatic. Neck: supple, trachea is midline, no swelling. Throat: Normal phonation. Eyes:, no erythema, no purulent discharge, no proptosis, no icterus. Heart: regular rate, regular rhythm, no significant murmur appreciated. Lungs: no apparent respiratory distress, Able to speak in full sentences. No wheezing, no rhonchi, no crackles. No stridors Clear to auscultation bilaterally. Abdomen: Mild periumbilical tender to palpation, non distended, soft, no guarding, no rebound, + bowel sounds. Obese Neuro: Awake, Alert, oriented to name, self, situation, follows commands GCS=15. Speech is normal. Skin: no petechia, no purpura, no cyanosis, non-pale, not jaundice. Lower extremities: --trace bilateral - Pitting edema no deformity, no focal swelling, no calf TTP. Makes eye contact. moves all four extremities. Face: no apparent facial droop. . Ambulating in the ED independently. ED COURSE: DISCLAIMER: This medical document was created using an electronic medical record system with voice recognition software and computerized dictation system. Although this document has been carefully reviewed, there might still be some phonetic and typographical errors. Occasional wrong-word or "sound-alike" substitutions may have occurred due to the inherent limitations of voice recognition software. These areas are purely typographical due to imperfections of the software programs and do not reflect any compromise in the patient's medical care. Please read the chart carefully and recognize, using context, where these substitutions have occurred. Chief Complaint: Abdominal Pain Time Seen by MD: 03:10 Primary Care Provider: JARAD CHERRY Reviewed Notes: Medications, Allergies Allergies: Coded Allergies: NO KNOWN ALLERGIES (Unverified , 06/28/10) Home Meds Active Scripts Ondansetron Odt 4MG Tab (ZOFRAN PO) 4 Mg Tb, 4 MG PO Q8HPRN PRN for 3 Days, #9 TAB ODT TAB-DISSOLVE IN MOUTH, THEN SWALLOW Prov:JAK,JUNE J DO 03/23/25 Acetaminophen W/ Codeine (Tylenol W/Cod #3) 1 Tab Tb, 1 TAB PO Q6HPRN, #10 TAB 0 Refills Prov:FRANCISCO GONZALEZ 07/19/24 Cyclobenzaprine Hcl (Cyclobenzaprine Hcl) 5 Mg Tab, 1 TAB PO QHSP, #14 TAB 0 Refills Prov:FRANCISCO GONZALEZ 07/19/24 Information Source: Patient Mode of Arrival: Ambulatory Timing: Days Duration: Since onset Prehospital treatment: None Past Medical History PAST MEDICAL HISTORY: DM Surgical History: Appendectomy Family History Family History: No family hx of HTN, No family hx ofKidney tory Social History Smoker: Non-Smoker Alcohol: Sober Drugs: Denies Drug Use Lives In: Home Was a procedure done? Was a procedure done?: No GI differential Dx Differential Diagnosis: Food Poisoning, Bacterial, Parasitic, Viral, Hypovolemia, Other (DDX include but not limited to diverticulitis, colitis, gastroenteritis, acute abdomen, SBO, enteritis, constipation, volvulus, appendicitis, Gallbladder disease, choledocolithiasis, ascending cholangitis, pancreatitis, intraAbdominal mass/neoplasm, hepatitis, UTI, pylonephritis, kidney stone, aneurysm, dissection, Inflammatory bowel disease, gastroparesis, ischemic bowel.) X-Ray, Labs, Meds, VS Vital Signs Date Time Temp Pulse Resp B/P (MAP) Pulse Ox O2 Delivery O2 Flow Rate FiO2 03/23/25 07:01 98.6 103 18 155/91 (112) 94 98.6 03/23/25 04:31 98.5 94 18 160/84 (109) 95 98.5 03/23/25 04:15 Room Air* 0 21 03/23/25 01:23 98.2 98 20 153/92 99 98.2 Lab Test 03/23/25 07:28 03/23/25 04:13 03/23/25 03:50 03/23/25 01:46 Range/Units Lactic Acid Level Pending 2.4 *H 3.6 *H 0.4-2.0 mmol/L Urine Color Light-yellow Yellow Urine Clarity Clear Clear Urine pH 6.5 5.0-9.0 Urine Specific Freedom 1.015 1.001-1.035 Urine Protein 1+ H Negative Urine Ketones Negative Negative Urine Blood 2+ H Negative /uL Urine Nitrite Negative Negative Urine Bilirubin Negative Negative Urine Urobilinogen Normal Negative mg/dL Urine Leukocyte Esterase Negative Negative /uL Urine RBC 37 0 - 3 /hpf Urine Microscopic WBC 2 0-3 /HPF Urine Squamous Epithelial Cells Few <5 /hpf Urine Bacteria None seen None Seen /hpf Urine Glucose 4+ H Normal mg/dL Stool for White Cells Pending White Blood Count 11.7 H 4.4-10.8 10^3/uL Red Blood Count 3.33 L 4.5-5.90 10^6/uL Hemoglobin 12.4 L 13.5-17.5 g/dL Hematocrit 35.4 L 41.0-53.0 % Mean Corpuscular Volume 106.3 H 80.0-100.0 fL Mean Corpuscular Hemoglobin 37.3 H 28.0-32.0 pg Mean Corpuscular Hemoglobin Concent 35.1 32.0-36.0 g/dL Red Cell Distribution Width 12.7 11.8-14.3 % Platelet Count 155 140-450 10^3/uL Mean Platelet Volume 8.4 6.9-10.8 fL Neutrophils (%) (Auto) 66.5 37.0-80.0 % Lymphocytes (%) (Auto) 19.4 10.0-50.0 % Monocytes (%) (Auto) 9.3 0.0-12.0 % Eosinophils (%) (Auto) 4.0 0.0-7.0 % Basophils (%) (Auto) 0.8 0.0-2.0 % Neutrophils # (Auto) 7.8 1.6-8.6 10 ^3/uL Lymphocytes # (Auto) 2.3 0.4-5.4 10 ^3/uL Monocytes # (Auto) 1.1 0-1.3 10 ^3/uL Eosinophils # (Auto) 0.5 0-0.8 10 ^3/uL Basophils # (Auto) 0.1 0-0.2 10 ^3/uL Nucleated Red Blood Cells 0.1 % Sodium Level 137 136-145 mmol/L Potassium Level 4.1 3.5-5.1 mmol/L Chloride Level 96 L 98-107 mmol/L Carbon Dioxide Level 27 20-31 mmol/L Anion Gap 14 5-15 Blood Urea Nitrogen 9 9-23 mg/dL Creatinine 1.24 0.700-1.30 mg/dL Glomerular Filtration Rate Calc 65 >90 mL/min BUN/Creatinine Ratio 7.3 L 10.0-20.0 Serum Glucose 412 *H 74-106 mg/dL Calcium Level 9.2 8.7-10.4 mg/dL Total Bilirubin 0.9 0.2-1.0 mg/dL Aspartate Amino Transferase (AST) 55 H 13-40 U/L Alanine Aminotransferase (ALT) 41 H 7-40 U/L Alkaline Phosphatase 108 46-116 U/L Total Protein 7.8 5.7-8.2 g/dL Albumin 3.7 3.2-4.8 g/dL Lipase 82 H 12-53 U/L Current Medications Medications (Trade) Dose Ordered Sig/Kody Route Start Time Stop Time Status Last Admin Sodium Chloride 1,000 ml @ 1,000 mls/hr Q1H ONCE IV 03/23/25 03:15 03/23/25 04:14 DC 03/23/25 04:01 Insulin Human Regular (InsuLIN R) 5 units ONCE ONCE IV 03/23/25 03:15 03/23/25 03:17 DC 03/23/25 04:02 Ondansetron HCl (Zofran) 8 mg ONCE ONCE IV 03/23/25 03:15 03/23/25 03:17 DC 03/23/25 04:00 Sucralfate (Carafate Tab) 1 gm ONCE ONCE PO 03/23/25 03:15 03/23/25 03:17 DC 03/23/25 04:00 Pantoprazole Sodium (Protonix Tablet) 40 mg ONCE ONCE PO 03/23/25 03:15 03/23/25 03:17 DC 03/23/25 04:00 Lidocaine HCl (Xylocaine 2% Viscous) 10 ml ONCE ONCE PO 03/23/25 03:15 03/23/25 03:17 DC 03/23/25 04:01 Sodium Chloride 1,000 ml @ 1,000 mls/hr Q1H ONCE IV 03/23/25 06:00 03/23/25 06:59 DC 03/23/25 06:[address] [address] Ph: [phone] DIAGNOSTIC IMAGING Diagnostic Imaging Report : [id number] Signed PATIENT: ZOLTAN CARBALLO ACCT: [id number] UNIT: [id number] : 1960 LOC: ER ROOM / BED: / AGE / SEX: 64 / M ADM STATUS: REG ER SERVICE 0223 ORDERING PHYSICIAN: JUNE BENEDICT DO PROCEDURE(s): ABPL - CT AB PEL WO CON-NO ORAL OR IV REASON: abd pain n/v/d ORDER NUMBER(s): [id number], ACCESSION NUMBER(s): [id number] Exam: CT CT AB PEL WO CON-NO ORAL OR IV History: abd pain n/v/d Comparison Study: None Technique: Multidetector spiral CT of the abdomen was performed from lung bases to pubic symphysis. Imaging was performed without IV contrast. Axial, coronal and sagittal multiplanar reformats were obtained from the axial data set by the technologist. Radiation Dose : 1. Abdomen/Pelvis: CTDIvol 17.66 mGy, DLP 1073.95 mGy*cm. Findings: Evaluation of solid organs is limited due to lack of intravenous contrast use. Lung Bases: No acute or significant lung base finding. Normal heart size. No pleural or pericardial effusion. Liver: Diffusely Cirrhotic hepatic morphology Without evidence of focal lesions. Gallbladder and Biliary Tree: 4.0 cm calcified gallstone. Spleen: Unremarkable Pancreas: The pancreas is grossly normal in appearance. Adrenal Glands: Unremarkable Kidneys: Kidneys are grossly normal without calculi or hydronephrosis. Bladder: Grossly unremarkable for degree of distention. Bowel: Moderate circumferential wall thickening and intramural edema of the gastroesophageal junction and lower esophagus. The stomach is grossly normal in appearance. Moderately distended small bowel segments with evidence of fecalization. No identifiable obstructive etiology. The appendix is not visualized; however, no secondary findings of acute appendicitis identified. Ascites: Absent Lymphadenopathy: No mesenteric, retroperitoneal or periportal lymphadenopathy. Abdominal Wall and Mesentery: Prominent venous collateral vessels consistent with sequelae of portal venous hypertension.. Vasculature: The visualized abdominal aorta is normal in size and caliber. Evaluation of abdominal and pelvic vessels is limited due to lack of intravenous contrast. Pelvic Organs: Unremarkable Musculoskeletal: No aggressive focal bony lesions, acute fractures or dislocati on. Hardware status post L4 through S1 transforaminal lumbar interbody fusion with interbody disc spacers at the L4-L5 and L5-S1 levels. No evidence of complication. IMPRESSION: 1. Moderate circumferential wall thickening and intramural edema of the g astroesophageal junction and lower esophagus. 2. Moderately distended small bowel segments with evidence of fecalization. 3. Cirrhotic hepatic morphology with sequelae of portal venous hypertension. 4. Cholelithiasis. Radiation optimization: All CT scans at this facility use at least one of these dose optimization techniques: automated exposure control mA and/or kV adjustm ent per patient size (includes targeted exams where dose is matched to clinical indication) or iterative reconstruction. ATED BY: JOE CURRAN MD DICTATED DATE/TIME: 03/23/25309 SIGNED BY: JOE CURRAN MD SIGNED DATE/TIME: 03/23/25309 CC: Time of 1ST Reevaluation: 03:40 Reevaluation 1ST: Unchanged Patient Education/Counseling: Diagnosis, Treatment Family Education/Counseling: No Family Present Comments MDM: patient presented with the above HPI.--GI symptoms/abdominal pain----workup was initiated. patient was found with the above mentioned diagnos is. the following medications were ordered: please refer to order lists of meds and tests obtained by myself Dr. Benedict. Patient ED course and VS have been stabilized. Patient has been reassessed in the ED and remained in a stable condition. Pertinent incidental findings were discussed with the patient and/or family. Patient/family voices understanding and is agreeable with plan. Patient has been observed in the ED adequate length of time to insure improvement/stability. Escalation of care considered: Consideration of escalation to observation or admission Patient was ADMITTED to the medicine team for further evaluation and treatment of their presentation. All the reports of any imaging studies that were ordered by myself were reviewed by myself. Departure 1 Departure Time of Disposition: 03:15 Impression: Primary Impression: Food poisoning Additional Impressions: Hyperglycemia due to diabetes mellitus Nausea and vomiting Portal venous hypertension Liver cirrhosis Cholelithiasis Elevated lactic acid level Disposition: ADMITTED INPATIENT Admit to: [facility] Condition: Guarded Additional Instructions: Additional instructions: Please read all instructions provided in this packet carefully. You MUST follow-up with your primary care/family doctor in 1 to 2 days. If you are unable to see your primary care/family doctor, please return to our emergency room for re-assessment and re-evaluation in 1 to 2 days. Return to the emergency room here in our facility or to the nearest ER [facility] if your symptoms change or worsen. CONSULTATIONS: you MUST Follow-up for consultation as soon as possible with: --gastroenterology in 1-2 days. Please call for appointment You MUST call the consultants office yourself to make an appointment. You may need to arrange that through your insurance and/or your primary/family doctor. If you are unable to see the beauty sales consultant in 1 to 2 days, you must return to our emergency room (or any other ER of your choice) for re-assessment and re- evaluation. Adequate fluid hydration. Although you have been discharged from the Emergency Department, this does not mean that you have a "clean bill of health". No definitive diagnosis for your symptoms has been made today. It is possible that you are in the process of developing a serious illness. This is why you must return to the ED without fail if any new or worsening symptoms develop. Avoid fatty greasy spicy food. Avoid caffeinated products. Avoid NSAIDs. Avoid alcohol Below is a copy of your radiological report for follow up: [place] [address] Ph: [phone] DIAGNOSTIC IMAGING Diagnostic Imaging Report : [id number] Signed PATIENT: ZOLTAN CARBALLO ACCT: [id number] UNIT: [id number] : 1960 LOC: ER ROOM / BED: / AGE / SEX: 64 / M ADM STATUS: REG ER SERVICE 0223 ORDERING PHYSICIAN: JUNE BENEDICT DO PROCEDURE(s): ABPL - CT AB PEL WO CON-NO ORAL OR IV REASON: abd pain n/v/d ORDER NUMBER(s): [id number], ACCESSION NUMBER(s): [id number] Exam: CT CT AB PEL WO CON-NO ORAL OR IV History: abd pain n/v/d Comparison Study: None Technique: Multidetector spiral CT of the abdomen was performed from lung bases to pubic symphysis. Imaging was performed without IV contrast. Axial, coronal and sagittal multiplanar reformats were obtained from the axial data set by the technologist. Radiation Dose : 1. Abdomen/Pelvis: CTDIvol 17.66 mGy, DLP 1073.95 mGy*cm. Findings: Evaluation of solid organs is limited due to lack of intravenous contrast use. Lung Bases: No acute or significant lung base finding. Normal heart size. No pleural or pericardial effusion. Liver: Diffusely Cirrhotic hepatic morphology Without evidence of focal lesions. Gallbladder and Biliary Tree: 4.0 cm calcified gallstone. Spleen: Unremarkable Pancreas: The pancreas is grossly normal in appearance. Adrenal Glands: Unremarkable Kidneys: Kidneys are grossly normal without calculi or hydronephrosis. Bladder: Grossly unremarkable for degree of distention. Bowel: Moderate circumferential wall thickening and intramural edema of the gastroesophageal junction and lower esophagus. The stomach is grossly normal in appearance. Moderately distended small bowel segments with evidence of fecalization. No identifiable obstructive etiology. The appendix is not v isualized; however, no secondary findings of acute appendicitis identified. Ascites: Absent Lymphadenopathy: No mesenteric, retroperitoneal or periportal lymphadenopathy. Abdominal Wall and Mesentery: Prominent venous collateral vessels consistent wit h sequelae of portal venous hypertension.. Vasculature: The visualized abdominal aorta is normal in size and caliber. Evaluation of abdominal and pelvic vessels is limited due to lack of intravenous contrast. Pelvic Organs: Unremarkable Musculoskeletal: No aggressive focal bony lesions, acute fractures or dislocation. Hardware status post L4 through S1 transforaminal lumbar interbody fusion with interbody disc spacers at the L4-L5 and L5-S1 levels. No evidence of complication. IMPRESSION: 1. Moderate circumferential wall thickening and intramural edema of the gastroesophageal junction and lower esophagus. 2. Moderately distended small bowel segments with evidence of fecalization. 3. Cirrhotic hepatic morphology with sequelae of portal venous hypertension. 4. Cholelithiasis. Radiation optimization: All CT scans at this facility use at least one of these dose optimization techniques: automated exposure control mA and/or kV adjustment per patient size (includes targeted exams where dose is matched to clinical indication) or iterative reconstruction. ATED BY: JOE CURRAN MD DICTATED DATE/TIME: 03/23/25309 SIGNED BY: JOE CURRAN MD SIGNED DATE/TIME: 03/23/25309 CC: e-Prescriptions Ondansetron Odt 4MG Tab (ZOFRAN PO) 4 Mg Tb 4 MG PO Q8HPRN PRN for 3 Days, #9 TAB ODT TAB-DISSOLVE IN MOUTH, THEN SWALLOW Prov: JUNE BENEDICT DO 03/23/25 Discharged With: Self Critical Care Note Critical Care Time?: No I personally scribed for JUNE BENEDICT DO ([email or web address]) on 03/23/25 at 02:49. Electronically submitted by Sherry Stewart ([email or web address]). I personally scribed for JUNE BENEDICT DO ([email or web address]) on 03/23/25 at 03:15. Electronically submitted by Sherry Stewart ([email or web address]). I personally scribed for JUNE BENEDICT DO ([email or web address]) on 03/23/25 at 03:24. Teressa ctronically submitted by Sherry Stewart ([email or web address]). JUNE BENEDICT DO Mar 23, 2025 02:49
--- NOTE | 2025-03-23 03:12 | DVH ---
Exam: CT CT AB PEL WO CON-NO ORAL OR IV History: abd pain n/v/d Comparison Study: None Technique: Multidetector spiral CT of the abdomen was performed from lung bases to pubic symphysis. I maging was performed without IV contrast. Axial, coronal and sagittal multiplanar reformats were obta ined from the axial data set by the technologist. Radiation Dose : 1. Abdomen/Pelvis: CTDIvol 17.66 mGy, DLP 1073.95 mGy*cm. Findings: Evaluation of solid organs is limited due to lack of intravenous contrast use. Lung Bases: No acute or significant lung base finding. Normal heart size. No pleural or pericardial effusion. Liver: Diffusely Cirrhotic hepatic morphology Without evidence of focal lesions. Gallbladder and Biliary Tree: 4.0 cm calcified gallstone. Spleen: Unremarkable Pancreas: The pancreas is grossly normal in appearance. Adrenal Glands: Unremarkable Kidneys: Kidneys are grossly normal without calculi or hydronephrosis. Bladder: Grossly unremarkable for degree of distention. Bowel: Moderate circumferential wall thickening and intramural edema of the gastroesophageal junction and lower esophagus. The stomach is grossly normal in appearance. Moderately distended small bowel s egments with evidence of fecalization. No identifiable obstructive etiology. The appendix is not vis ualized; however, no secondary findings of acute appendicitis identified. Ascites: Absent Lymphadenopathy: No mesenteric, retroperitoneal or periportal lymphadenopathy. Abdominal Wall and Mesentery: Prominent venous collateral vessels consistent with sequelae of portal venous hypertension.. Vasculature: The visualized abdominal aorta is normal in size and caliber. Evaluation of abdominal a nd pelvic vessels is limited due to lack of intravenous contrast. Pelvic Organs: Unremarkable Musculoskeletal: No aggressive focal bony lesions, acute fractures or dislocation. Hardware status po st L4 through S1 transforaminal lumbar interbody fusion with interbody disc spacers at the L4-L5 and L5-S1 levels. No evidence of complication. IMPRESSION: 1. Moderate circumferential wall thickening and intramural edema of the gastroesophageal junction and lower esophagus. 2. Moderately distended small bowel segments with evidence of fecalization. 3. Cirrhotic hepatic morphology with sequelae of portal venous hypertension. 4. Cholelithiasis. Radiation optimization: All CT scans at this facility use at least one of these dose optimization rod hniques: automated exposure control mA and/or kV adjustment per patient size (includes targeted exam s where dose is matched to clinical indication) or iterative reconstruction.
[2025-03-23] MEDS: SUCRALFATE 1 GM TAB PO ONE (04:00)
[2025-03-23] MEDS: ONDANSETRON HCL 4 MG/2 ML VIAL IV ONE (04:00)
[2025-03-23] MEDS: PANTOPRAZOLE 40 MG TAB PO ONE (04:00)
[2025-03-23] MEDS: SODIUM CHLORIDE 0.9% 1,000 ML IV ONE ×2 (04:01→06:22)
[2025-03-23] MEDS: LIDOCAINE VISCOUS 2% 15ML UD PO ONE (04:01)
[2025-03-23] MEDS: InsuLIN REG 1unit/0.01ml Soln (100units/ml) IV ONE (04:02)
[2025-03-23] MEDS ORDERED: ZOFR4T PO (04:10)
[2025-03-23] MEDS: CIPROFLOXACIN 400MG/200ML 200 ML IV ONE (06:00)
[2025-03-23 06:24] LABS: Urine Protein, UAD 1+ (Negative)
[2025-03-23 07:11] VITALS: PULSE 63
--- NOTE | 2025-03-23 08:02 | DVHHP2 ---
History of Present Illness Reason for Visit: Abdominal pain with nausea and vomiting History of Present Illness John Trejo is a 64-year-old male with past medical history of diabetes, appendectomy and back surgery who presents to the ED with abdominal pain, nausea, and vomiting x 1 day. Patient also reports that his emesis was black in color x5 episodes. Patient reports that his 4/10 is "pain" in his constant. Patient reports there are no triggering or alleviating factors. Patient reports that his bowel movement is normal in color. He also reports that his son also ate clams is having diarrhea at home. Patient also reports that he went to [place] 1 week ago. Patient reports that he drinks 6 beers per day. Patient also reports that he is not taking his medications when asked patient states "I do not know". Patient denies any recent trauma or injury, recent sick contacts, recent ingestion of spoiled food, chest pain, shortness of breath, fever, chills, lightheadedness, weakness, dizziness, and urinary symptoms. Endocrine: Diabetes Past Surgical History: Appendectomy, Other (Back surgery) Family History: None Smoke: No ALCOHOL: heavy Drugs: None Lives: with Family Domestic Violence: Neg Review of Systems Gastrointestinal: Nausea, Vomiting, Abdominal Pain, Other (Hematemesis) Allergies: Coded Allergies: NO KNOWN ALLERGIES (Unverified , 06/28/10) Exam Vital Signs Vital Signs Date Time Temp Pulse Resp B/P (MAP) Pulse Ox O2 Delivery O2 Flow Rate FiO2 03/23/25 07:01 98.6 103 18 155/91 (112) 94 98.6 03/23/25 04:15 Room Air* 0 21 General Appearance: Alert, Oriented X3, Cooperative, No acute distress HEENT: Atraumatic, PERRLA, EOMI, Mucous membr. moist/pink Respiratory: Clear to auscultation, Normal air movement Cardiovascular: Regular rate, Normal S1, Normal S2, No murmurs Abdominal: Normal bowel sounds, Soft Extremities: Normal pulses Skin: No significant lesion Neuro: Normal gait, Normal speech, Strength at 5/5 X4 ext, Normal tone, Sensation intact Psych/Mental Status: Mental status NL, Mood NL Labs/Xrays Labs Test 03/23/25 07:28 03/23/25 04:13 03/23/25 01:46 Range/Units Urine Color Light-yellow Yellow Urine Clarity Clear Clear Urine pH 6.5 5.0-9.0 Urine Specific [place] 1.015 1.001-1.035 Urine Protein 1+ H Negative Urine Ketones Negative Negative Urine Blood 2+ H Negative /uL Urine Nitrite Negative Negative Urine Bilirubin Negative Negative Urine Urobilinogen Normal Negative mg/dL Urine Leukocyte Esterase Negative Negative /uL Urine RBC 37 0 - 3 /hpf Urine Microscopic WBC 2 0-3 /HPF Urine Squamous Epithelial Cells Few <5 /hpf Urine Bacteria None seen None Seen /hpf Urine Glucose 4+ H Normal mg/dL White Blood Count 11.7 H 4.4-10.8 10^3/uL Red Blood Count 3.33 L 4.5-5.90 10^6/uL Hemoglobin 12.4 L 13.5-17.5 g/dL Hematocrit 35.4 L 41.0-53.0 % Mean Corpuscular Volume 106.3 H 80.0-100.0 fL Mean Corpuscular Hemoglobin 37.3 H 28.0-32.0 pg Mean Corpuscular Hemoglobin Concent 35.1 32.0-36.0 g/dL Red Cell Distribution Width 12.7 11.8-14.3 % Platelet Count 155 140-450 10^3/uL Mean Platelet Volume 8.4 6.9-10.8 fL Neutrophils (%) (Auto) 66.5 37.0-80.0 % Lymphocytes (%) (Auto) 19.4 10.0-50.0 % Monocytes (%) (Auto) 9.3 0.0-12.0 % Eosinophils (%) (Auto) 4.0 0.0-7.0 % Basophils (%) (Auto) 0.8 0.0-2.0 % Neutrophils # (Auto) 7.8 1.6-8.6 10 ^3/uL Lymphocytes # (Auto) 2.3 0.4-5.4 10 ^3/uL Monocytes # (Auto) 1.1 0-1.3 10 ^3/uL Eosinophils # (Auto) 0.5 0-0.8 10 ^3/uL Basophils # (Auto) 0.1 0-0.2 10 ^3/uL Nucleated Red Blood Cells 0.1 % Sodium Level 137 136-145 mmol/L Potassium Level 4.1 3.5-5.1 mmol/L Chloride Level 96 L 98-107 mmol/L Carbon Dioxide Level 27 20-31 mmol/L Anion Gap 14 5-15 Blood Urea Nitrogen 9 9-23 mg/dL Creatinine 1.24 0.700-1.30 mg/dL Glomerular Filtration Rate Calc 65 >90 mL/min BUN/Creatinine Ratio 7.3 L 10.0-20.0 Serum Glucose 412 *H 74-106 mg/dL Calcium Level 9.2 8.7-10.4 mg/dL Total Bilirubin 0.9 0.2-1.0 mg/dL Aspartate Amino Transferase (AST) 55 H 13-40 U/L Alanine Aminotransferase (ALT) 41 H 7-40 U/L Alkaline Phosphatase 108 46-116 U/L Total Protein 7.8 5.7-8.2 g/dL Albumin 3.7 3.2-4.8 g/dL Lipase 82 H 12-53 U/L Exam: CT CT AB PEL WO CON-NO ORAL OR IV History: abd pain n/v/d Comparison Study: None Technique: Multidetector spiral CT of the abdomen was performed from lung bases to pubic symphysis. Imaging was performed without IV contrast. Axial, coronal and sagittal multiplanar reformats were obtained from the axial data set by the technologist. Radiation Dose : 1. Abdomen/Pelvis: CTDIvol 17.66 mGy, DLP 1073.95 mGy*cm. Findings: Evaluation of solid organs is limited due to lack of intravenous contrast use. Lung Bases: No acute or significant lung base finding. Normal heart size. No pleural or pericardial effusion. Liver: Diffusely Cirrhotic hepatic morphology Without evidence of focal lesions. Gallbladder and Biliary Tree: 4.0 cm calcified gallstone. Spleen: Unremarkable Pancreas: The pancreas is grossly normal in appearance. Adrenal Glands: Unremarkable Kidneys: Kidneys are grossly normal without calculi or hydronephrosis. Bladder: Grossly unremarkable for degree of distention. Bowel: Moderate circumferential wall thickening and intramural edema of the gastroesophageal junction and lower esophagus. The stomach is grossly normal in appearance. Moderately distended small bowel segments with evidence of fecalization. No identifiable obstructive etiology. The appendix is not visualized; however, no secondary findings of acute appendicitis identified. Ascites: Absent Lymphadenopathy: No mesenteric, retroperitoneal or periportal lymphadenopathy. Abdominal Wall and Mesentery: Prominent venous collateral vessels consistent with sequelae of portal venous hypertension.. Vasculature: The visualized abdominal aorta is normal in size and caliber. Evaluation of abdominal and pelvic vessels is limited due to lack of intravenous contrast. Pelvic Organs: Unremarkable Musculoskeletal: No aggressive focal bony lesions, acute fractures or dislocation. Hardware status post L4 through S1 transforaminal lumbar interbody fusion with interbody disc spacers at the L4-L5 and L5-S1 levels. No evidence of complication. IMPRESSION: 1. Moderate circumferential wall thickening and intramural edema of the gastroesophageal junction and lower esophagus. 2. Moderately distended small bowel segments with evidence of fecalization. 3. Cirrhotic hepatic morphology with sequelae of portal venous hypertension. 4. Cholelithiasis. SEPSIS Sepsis Screen Date sepsis recognized/suspect: Mar 23, 2025 Time Sepsis recognized/suspect: 124 Recent Procedure: No On Antibiotic Therapy: No Respiratory Rate >20: No Heart Rate >90: Yes Temp<36 C (96.8 F) or >38.3 C: No SBP <90 or MAP <65 mmHG: No New Acute Mental Status Change: No Is the patient on CPAP, BIPAP,: No Physician Orders Hotel [employer]ge (03/23/25 ) Electrocardigram (03/23/25 01:32) Ova & Parasite Exam (03/23/25 01:32) Stool Bacterial Culture (03/23/25 01:32) Stool Wbc (03/23/25 01:32) Ct Ab Pel Wo Con-No Oral Or Iv (03/23/25 02:23) Accucheck (03/23/25 ) Lactic Acid W/ Reflex Order (03/23/25 07:00) Vital Signs Date Time Temp Pulse Resp B/P (MAP) Pulse Ox O2 Delivery O2 Flow Rate FiO2 03/23/25 07:01 98.6 103 18 155/91 (112) 94 98.6 03/23/25 04:31 98.5 94 18 160/84 (109) 95 98.5 03/23/25 04:15 Room Air* 0 21 03/23/25 01:23 98.2 98 20 153/92 99 98.2 Laboratory Tests Test 03/23/25 01:46 03/23/25 03:50 03/23/25 07:28 Lactic Acid Level 3.6 mmol/L (0.4-2.0) *H 2.4 mmol/L (0.4-2.0) *H Pending White Blood Count 11.7 10^3/uL (4.4-10.8) H Medications Medications Dose Ordered Sig/Kody Route Start Time Stop Time Status Last Admin Dose Admin Insulin Human Regular 5 units ONCE ONCE IV 03/23/25 03:15 03/23/25 03:17 DC 03/23/25 04:02 5 UNITS Lidocaine HCl 10 ml ONCE ONCE PO 03/23/25 03:15 03/23/25 03:17 DC 03/23/25 04:01 10 ML Ondansetron HCl 8 mg ONCE ONCE IV 03/23/25 03:15 03/23/25 03:17 DC 03/23/25 04:00 8 MG Pantoprazole Sodium 40 mg ONCE ONCE PO 03/23/25 03:15 03/23/25 03:17 DC 03/23/25 04:00 40 MG Sodium Chloride 1,000 ml @ 1,000 mls/hr Q1H ONCE IV 03/23/25 03:15 03/23/25 04:14 DC 03/23/25 04:01 1,000 MLS/HR Sodium Chloride 1,000 ml @ 1,000 mls/hr Q1H ONCE IV 03/23/25 06:00 03/23/25 06:59 DC 03/23/25 06:22 1,000 MLS/HR Sucralfate 1 gm ONCE ONCE PO 03/23/25 03:15 03/23/25 03:17 DC 03/23/25 04:00 1 GM Assessment/Plan Assessment/Plan Assessment Intractable abdominal pain with nausea and vomiting likely gastroenteritis Hematemesis Cirrhotic hepatic morphology with sequelae of portal venous hypertension Cholelithiasis Obesity Alcohol use Leukocytosis likely due to gastroenteritis Lactic acidosis likely sepsis History of diabetes History of appendectomy History of back surgery Plan Admit to [facility] Antiemetics Pain management IV antibiotics-ceftriaxone Ciprofloxacin given in ED NS 2 L given ED Lactic noted CT abdomen and pelvis noted Stool WBC Stool bacterial EKG UA noted Hemoglobin A1c ISS and Accu-Cheks Multivitamins Thiamine Folic acid CIWA UDS Blood cultures Urine cultures ESR CRP Blood alcohol Diet Home medications reconciled DVT prophylaxis-SCDs PUD prophylaxis-PPIs Discussed plan of care with patient and nurse Counseled patient on cessation of alcohol use Counseled patient on lifestyle modifications, diet, and exercise [id number] Preventive counseling healthy eating habits, physical activity, and regular checkups Plan discussed with: Patient Date of Service: Mar 23, 2025 Billing Provider: MADELINE LYNNE Common Visit Codes: [id number] INP/OBS CARE (HIGH) Secondary Visit Codes: [id number] COUNSELING IND MADELINE LYNNE Mar 23, 2025 08:02
[2025-03-23] MEDS ORDERED: HYDROcodone-ACET 5/325MG TAB PO PRN (09:15)
[2025-03-23] MEDS ORDERED: ACETAMINOPHEN 325 MG TAB PO PRN (09:15)
[2025-03-23] MEDS ORDERED: DEXTROSE (50%) 50ML SYRG IV PRN (09:15)
[2025-03-23] MEDS ORDERED: ONDANSETRON HCL 4 MG/2 ML VIAL IV PRN (09:15)
[2025-03-23] MEDS ORDERED: CYCLOBENZAPRINE HCL 10 MG TAB PO PRN (09:45)
[2025-03-23] MEDS: ACCU-CHEK COMFORT CURVE STRIP VI SCH (11:39)
[2025-03-23] MEDS: InsuLIN REG 1unit/0.01ml Soln (100units/ml) SC SCH (11:41)
[2025-03-23 13:36] LABS: Magnesium 1.5 mg/dL (1.6-2.6)
[2025-03-23] MEDS: THIAMINE HCL 100 MG TAB PO ONE (13:41)
[2025-03-23] MEDS: MULTIPLE VITAMIN TAB PO ONE (13:41)
[2025-03-23] MEDS: FOLIC ACID 1 MG TAB PO ONE (13:42)
[2025-03-23 14:52] VITALS: PULSE 74; RESP 17; O2SAT 96
[2025-03-23 16:49] LABS: Amphetamine Screen, Urine Neg (NEGATIVE); Barbiturate Scree,Urine Neg (NEGATIVE); Benzodiazephine Screen, Urine Neg (NEGATIVE); Cannabinoid Screen, Urine Neg (NEGATIVE); Cocaine Screen, Urine Neg (NEGATIVE); Opiate Scree,Urine Neg (NEGATIVE); Phencyclidine Screen, Urine Neg (NEGATIVE)
[2025-03-23 17:55] VITALS: BP 157/83; PULSE 71; RESP 16; TEMP 98.1; O2SAT 95
[2025-03-23 20:00] VITALS: PULSE 63
[2025-03-23 21:00] VITALS: BP 153/84; PULSE 57; RESP 18; TEMP 97.9; O2SAT 97
[2025-03-23] MEDS ORDERED: CYCLOBENZAPRINE HCL PO SCH (22:00)
[2025-03-24] VITALS (9 sets, daily range): BP systolic 126–158; BP diastolic 66–94; PULSE 59–79; RESP 12–20; TEMP 97.4–98.2; O2SAT 94–99
[2025-03-24 05:28] LABS: Hemoglobin 10.9 g/dL (13.5-17.5); Nucleated Red Blood Cells % 0.1 %
[2025-03-24 05:30] LABS: Hematocrit 30.3 % (41.0-53.0); Mean Corpuscular Hemoglobin 37.7 pg (28.0-32.0); Mean Corpuscular Volume 104.8 fL (80.0-100.0)
[2025-03-24 05:46] LABS: Alanine Aminotransferase 29 U/L (7-40); Alkaline Phosphatase 80 U/L (46-116); Anion Gap 10 (5-15); BUN/Creatinine Ratio 12.4 (10.0-20.0); Bilirubin, Total 0.9 mg/dL (0.2-1.0); Blood Urea Nitrogen 13 mg/dL (9-23); Carbon Dioxide 28 mmol/L (20-31); Chloride 101 mmol/L (98-107); Potassium 3.5 mmol/L (3.5-5.1); Sodium 139 mmol/L (136-145); Total Protein 6.2 g/dL (5.7-8.2)
[2025-03-24 05:52] LABS: Albumin 2.9 g/dL (3.2-4.8); Calcium 7.9 mg/dL (8.7-10.4); Glucose 159 mg/dL (74-106)
[2025-03-24] MEDS: FOLIC ACID 1 MG TAB PO SCH (08:39)
[2025-03-24] MEDS: THIAMINE HCL 100 MG TAB PO SCH (08:39)
[2025-03-24] MEDS: MULTIPLE VITAMIN TAB PO SCH (08:39)
[2025-03-24 11:35] LABS: Hepatitis B Surface Antigen Negative (Negative)
[2025-03-24 11:45] LABS: Hepatitis C Antibody Negative (Negative)
[2025-03-24] MEDS: PANTOPRAZOLE 40 MG/10 ML VIAL INJ IV ONE (12:15)
[2025-03-24] MEDS: MAGNESIUM SULFATE 1GM/100ML 100 ML IV SCH (13:09)
--- NOTE | 2025-03-24 14:11 | DVHPNRES ---
Progress Note Date Seen: Mar 24, 2025 Resident Creating Document: STEPHANIE KIM RESIDENT Medical Necessity Reason Pt with a Central, PICC or Fol: No Subjective Review of Systems Mr Trejo, a 64 year old male with past medical history of type 2 diabetes noncompliant with medicines, significant alcohol abuse, h/o appendectomy, spine surgeries due to intervertebral disc problems presented to the ER due to coffee ground hematemesis, nausea, abdominal pain since 1 day. He ate sea food the day before. As per admission note, son is also having diarrhoea followed by eating sea-food.He reports the abdominal pain to be diffuse, gradual onset, constant, nonradiating. 4/10 intensity. He denies any black stool,fever, travel history. He has no chest pain, shortness of breath,fever or any other complaints today. PMHx: as per HPI PSHx: as per HPI Home medications: none Allergies: none Alcohol: 6 beers a day Denies smoking or drug abuse CODE STATUS: FULL CODE Objective vital signs Vital Sign Date Time Temp Pulse Resp B/P (MAP) Pulse Ox O2 Delivery O2 Flow Rate FiO2 03/24/25 12:33 98.2 65 20 129/94 (106) 97 98.2 03/24/25 08:00 Room Air* 0 21 Total Intake and Output 03/23/25 03/23/25 03/24/25 15:00 23:00 07:00 Intake Total 1000 ml 600 ml Balance 1000 ml 600 ml medications Current Medications Medications Dose Ordered Sig/Kody Route Start Time Stop Time Status Last Admin Dose Admin Ceftriaxone Sodium 50 ml @ 100 mls/hr DAILY@09 IV 03/23/25 09:15 03/24/25 08:38 100 MLS/HR Diagnostic Test (Pha) 1 strip ACHS 03/23/25 11:30 03/24/25 11:56 1 STRIP Insulin Human Regular ACHS SC 03/23/25 11:30 03/24/25 11:57 6 UNITS Dextrose 50 ml UD PRN IV 03/23/25 09:15 Acetaminophen/ Hydrocodone Bitart 1 tab Q4HP PRN PO 03/23/25 09:15 Ondansetron HCl 4 mg Q4HP PRN IV 03/23/25 09:15 Acetaminophen 650 mg Q6HP PRN PO 03/23/25 09:15 Patient Own Medication 1 tab QHSP PO 03/23/25 22:00 UNV Cyclobenzaprine HCl 5 mg HS PRN PO 03/23/25 09:45 Thiamine HCl 100 mg DAILY PO 03/24/25 10:00 03/24/25 08:39 100 MG Folic Acid 1 mg DAILY PO 03/24/25 10:00 03/24/25 08:39 1 MG Multivitamins 1 tab DAILY PO 03/24/25 10:00 03/24/25 08:39 1 TAB Magnesium Sulfate/ Dextrose 100 ml @ 100 mls/hr Q1HR IV 03/24/25 13:00 03/24/25 14:59 03/24/25 13:09 100 MLS/HR Pantoprazole Sodium 40 mg BID IV 03/24/25 22:00 Examination Physical exam Head neck: No abnormalities, no lymphadenopathy Heart: Rhythm regular, No abnormal heart sound or murmur, S1 and S2 present, Lungs: Clear to auscaltation Abdomen:Non-tender, soft, non distended Extremities: no edema Neurologic: No sensory or motor defficits Accompanied by nurse as a kitchen steward laboratory and microbiology Laboratory Tests 03/24/25 04:57 Test 03/24/25 04:57 Range/Units Serum Glucose 159 #H 74-106 mg/dL Microbiology Date/Time Source Procedure Growth Status 03/23/25 09:20 Blood Blood Culture - Preliminary NO GROWTH AFTER 24 HOURS OF INCUBATION. Resulted 03/23/25 04:13 Voided Urine Urine Culture - Preliminary Resulted 03/23/25 04:13 Stool Stool Culture - Preliminary Resulted 03/23/25 04:13 Stool Shiga Toxin I & II Pending Resulted Labs and/or images reviewed: Labs reviewed by me, Image(s) reviewed by me Problem List/Assessment/Plan Problem List/Assessment/Plan Hematemesis due to cirrhosis with portal hypertension likely alcohol induced Infectous gastroenteritis Sliding hiatal hernia Antral gastritis Esophageal varices IV fluid IV ceftriaxone IV Ciprofloxacin one dose given Lactic acid downtrending GI consult appreciated. Upper GI Endoscopy:Patient had a 2 cm sliding-type hiatal hernia with irregular squamocolumnar junction grade B linear erosive esophagitis with some superficial distal esophageal ulcer There was trace prominence of the distal esophageal veins suspected trace esophageal varices. Mild antral gastritis with pre-pyloric antral gastric erosions and mild portal hypertension gastropathy of the proximal stomach. Otherwise normal examination up to the 2nd and 3rd part of the duodenum with no active bleeding no fresh or old blood in the upper GI tract. Protonix 40 mg bid Carafate suspension 1 g p.o. 4 times a day Advance diet as tolerated. Outpatient follow up with GI in 4-6 weeks to review biopsy results and discuss further management CT Abdomen and pelvis: Moderate circumferential wall thickening and intramural edema of the gastroesophageal junction and lower esophagus. Moderately distended small bowel segments with evidence of fecalization. Cirrhotic hepatic morphology with sequelae of portal venous hypertension.Cholelithiasis. Asymptomatic cholelithiasis Alcohol use disorder Alcohol withdrawal CIWA 6 Thiamine, folic acid, multivitamins given. DVT prophylaxis: SCDs GI prophylaxis: protonix Plan discussed with: Patient, Other (RN) Date of Service: Mar 24, 2025 Billing Provider: KASSIDY ADAMS MD Common Visit Codes: [id number] INP/OBS CARE(HIGH) STEPHANIE KIM RESIDENT Mar 24, 2025 14:11 KASSIDY ADAMS MD Mar 25, 2025 08:18
--- NOTE | 2025-03-24 14:22 | DVHINCON2 ---
GI Consult Consult Note GI consult note Date of Consultation: 03/24/2025 Chief Complaint: GI bleeding Referring Physician: Dr. Ventura H&P: 64-year-old male with past medical history of diabetes, appendectomy and back surgery admitted with abdominal pain, nausea and vomiting for one day. Patient had coffee-ground black emesis about 5 times one day ago. No nausea or vomiting at this time. Slight epigastric pain per patient. No melena or red blood in stool. Patient admits to about six beers every day. Status post EGD [address] Rodriguez Denies any blood thinners Past Medical History: Diabetes Past Surgical History: Appendectomy, back surgery Social History: NO smoking, heavy drinking ETOH Family History: Noncontributory Review of Systems: Constitutional: no fever, chill, weight loss HEENT: no eye pain, no hearing loss, no oral lesion, no scleral icterus Heart: no chest pain, no chest pressure Lung: no cough, no dyspnea with exertion Abdomen: see HPI Physical exam: General: NAD, AAOX3 Chest: lung caceres clear to auscultation Heart: RRR, no murmur Abdomen: non-distended, mild epigastric tenderness to palpation, +BS Labs:Labs Test 03/23/25 07:28 03/23/25 04:13 03/23/25 01:46 Range/Units Urine Color Light-yellow Yellow Urine Clarity Clear Clear Urine pH 6.5 5.0-9.0 Urine Specific [place] 1.015 1.001-1.035 Urine Protein 1+ H Negative Urine Ketones Negative Negative Urine Blood 2+ H Negative /uL Urine Nitrite Negative Negative Urine Bilirubin Negative Negative Urine Urobilinogen Normal Negative mg/dL Urine Leukocyte Esterase Negative Negative /uL Urine RBC 37 0 - 3 /hpf Urine Microscopic WBC 2 0-3 /HPF Urine Squamous Epithelial Cells Few <5 /hpf Urine Bacteria None seen None Seen /hpf Urine Glucose 4+ H Normal mg/dL White Blood Count 11.7 H 4.4-10.8 10^3/uL Red Blood Count 3.33 L 4.5-5.90 10^6/uL Hemoglobin 12.4 L 13.5-17.5 g/dL Hematocrit 35.4 L 41.0-53.0 % Mean Corpuscular Volume 106.3 H 80.0-100.0 fL Mean Corpuscular Hemoglobin 37.3 H 28.0-32.0 pg Mean Corpuscular Hemoglobin Concent 35.1 32.0-36.0 g/dL Red Cell Distribution Width 12.7 11.8-14.3 % Platelet Count 155 140-450 10^3/uL Mean Platelet Volume 8.4 6.9-10.8 fL Neutrophils (%) (Auto) 66.5 37.0-80.0 % Lymphocytes (%) (Auto) 19.4 10.0-50.0 % Monocytes (%) (Auto) 9.3 0.0-12.0 % Eosinophils (%) (Auto) 4.0 0.0-7.0 % Basophils (%) (Auto) 0.8 0.0-2.0 % Neutrophils # (Auto) 7.8 1.6-8.6 10 ^3/uL Lymphocytes # (Auto) 2.3 0.4-5.4 10 ^3/uL Monocytes # (Auto) 1.1 0-1.3 10 ^3/uL Eosinophils # (Auto) 0.5 0-0.8 10 ^3/uL Basophils # (Auto) 0.1 0-0.2 10 ^3/uL Nucleated Red Blood Cells 0.1 % Sodium Level 137 136-145 mmol/L Potassium Level 4.1 3.5-5.1 mmol/L Chloride Level 96 L 98-107 mmol/L Carbon Dioxide Level 27 20-31 mmol/L Anion Gap 14 5-15 Blood Urea Nitrogen 9 9-23 mg/dL Creatinine 1.24 0.700-1.30 mg/dL Glomerular Filtration Rate Calc 65 >90 mL/min BUN/Creatinine Ratio 7.3 L 10.0-20.0 Serum Glucose 412 *H 74-106 mg/dL Calcium Level 9.2 8.7-10.4 mg/dL Total Bilirubin 0.9 0.2-1.0 mg/dL Aspartate Amino Transferase (AST) 55 H 13-40 U/L Alanine Aminotransferase (ALT) 41 H 7-40 U/L Alkaline Phosphatase 108 46-116 U/L Total Protein 7.8 5.7-8.2 g/dL Albumin 3.7 3.2-4.8 g/dL Lipase 82 H 12-53 U/L Imaging: CT abdomen pelvis IMPRESSION: 1. Moderate circumferential wall thickening and intramural edema of the gastroesophageal junction and lower esophagus. 2. Moderately distended small bowel segments with evidence of fecalization. 3. Cirrhotic hepatic morphology with sequelae of portal venous hypertension. 4. Cholelithiasis. Assessment: GI bleed Abdominal pain Cholelithiasis Liver cirrhosis History of varices in past Heavy alcohol use Plan: Discussed with Dr. Toussaint - Pt will be scheduled for an EGD today. Pt was informed of the risks (bleeding, infection, perforation, reaction to sedation medications and cardiopulmonary arrest) and benefit and is agreeable to undergo the procedures. Discussed plan with patient and RN and hospital team Thank you for this consult Date of Service: Mar 24, 2025 Billing Provider: ABBEY TILLMAN Common Visit Codes: CONSULT ONLY Consultation Codes: [id number] CONSULT <60MIN ABBEY TILLMAN Mar 24, 2025 14:22
[2025-03-24] MEDS ORDERED: fentaNYL CITRATE 100 MCG/2 ML VL ONE (14:48)
[2025-03-24] MEDS ORDERED: PROPOFOL 10 MG/ML 20 ML IV ONE (14:48)
[2025-03-24] MEDS: METOCLOPRAMIDE HCL 5MG/ml INJ 2ml VIAL IV ONE (14:55)
[2025-03-24] MEDS: THIAMINE 100mg/ml INJ (200mg/2ml VIAL) IV ONE (15:00)
--- NOTE | 2025-03-24 15:16 | DVHOP2 ---
Operative Report DATE OF OPERATION: 03/24/25 PROCEDURE: Upper Endoscopy with biopsy. PREOPERATIVE INDICATION: The patient is a 64 -year-old male undergoing endoscopy for upper GI bleed POSTOPERATIVE DIAGNOSES: 1. Patient had a 2 cm sliding-type hiatal hernia with irregular squamocolumnar junction grade B linear erosive esophagitis with some superficial distal esophageal ulcer 2. There was trace prominence of the distal esophageal veins suspected trace esophageal varices 3. Mild antral gastritis with pre-pyloric antral gastric erosions and mild portal hypertension gastropathy of the proximal stomach 4. Otherwise normal examination up to the 2nd and 3rd part of the duodenum with no active bleeding no fresh or old blood in the upper GI tract PROCEDURE PERFORMED BY: Macario Toussaint GI NURSE: Emely SCOPE: Olympus videoendoscope. ASA CLASS: 3 PREOPERATIVE MEDICATIONS: Mac nickie, Dr. Guillaume PROCEDURE IN DETAIL: After obtaining an informed consent, the patient was placed on left lateral decubitus position. The patient was then sedated with the above medications. A bite block was placed between his teeth. The endoscope was then passed through the oropharynx, into the esophagus, and through the stomach and pylorus up to the second and third part of the duodenum. The endoscope was then withdrawn. The 2nd and 3rd part of the duodenal and the duodenal bulb were normal. Duodenal biopsies were obtained The pre-pyloric area antrum and body showed mild gastritis with pre-pyloric antral gastric erosions and gastropathy in the proximal stomach Gastric biopsies were obtained. Mild increase oozing was noted from biopsy sites. The endoscope was then withdrawn into distal esophagus. Patient had a 2 cm sliding-type hiatal hernia with irregular squamocolumnar junction grade B linear erosive esophagitis with a 1 cm distal esophageal ulcer Avery classification C with no stigmata of active bleeding No biopsies were obtained at this time because the patient had trace prominence of esophageal veins suspicious for trace early esophageal varices The remaining distal and proximal esophagus and oropharynx were unremarkable The patient tolerated the procedure well without difficulty. COMPLICATIONS : None SPECIMENS: Duodenal biopsies Gastric biopsies DISPOSITION: Transfer back to the floor Stable PLAN: 1. Await for biopsy result 2. Will place pt on Protonix 40 mg bid 3. Carafate suspension 1 g p.o. 4 times a day 4. Resume full liquid diet advance to soft mechanical 5. Outpatient follow up with me in 4-6 weeks to review results and discuss further management MACARIO TOUSSAINT MD Mar 24, 2025 15:16
[2025-03-24 17:05] LABS: Hematocrit 31.1 % (41.0-53.0); Hemoglobin 10.9 g/dL (13.5-17.5)
[2025-03-24 17:15] LABS: INR 1.15 (0.9-1.15); Prothrombin Time 12.0 sec (9.3-11.8)
[2025-03-24] MEDS: SUCRALFATE 1 GM/10 ML ORAL SUSP PO SCH (17:25)
[2025-03-24] MEDS: PANTOPRAZOLE 40 MG/10 ML VIAL INJ IV SCH (21:20)
[2025-03-25 01:01] VITALS: BP 159/59; PULSE 76; RESP 19; TEMP 98.1; O2SAT 95
[2025-03-25 05:25] VITALS: BP 157/88; PULSE 80; RESP 19; TEMP 98.1; O2SAT 97
[2025-03-25 06:42] LABS: Hemoglobin 11.4 g/dL (13.5-17.5); Nucleated Red Blood Cells % 0.0 %
[2025-03-25 06:44] LABS: Hematocrit 31.7 % (41.0-53.0); Mean Corpuscular Hemoglobin 37.2 pg (28.0-32.0); Mean Corpuscular Volume 103.4 fL (80.0-100.0)
[2025-03-25 07:03] LABS: Alanine Aminotransferase 31 U/L (7-40); Alkaline Phosphatase 92 U/L (46-116); Anion Gap 10 (5-15); BUN/Creatinine Ratio 11.1 (10.0-20.0); Blood Urea Nitrogen 11 mg/dL (9-23); Carbon Dioxide 26 mmol/L (20-31); Chloride 100 mmol/L (98-107); Total Protein 6.1 g/dL (5.7-8.2)
[2025-03-25 07:04] LABS: Bilirubin, Total 1.0 mg/dL (0.2-1.0)
[2025-03-25 07:07] LABS: Albumin 2.9 g/dL (3.2-4.8); Calcium 7.8 mg/dL (8.7-10.4); Glucose 164 mg/dL (74-106); Potassium 3.4 mmol/L (3.5-5.1); Sodium 136 mmol/L (136-145)
[2025-03-25 08:00] VITALS: PULSE 56; PULSE 59; RESP 17; O2SAT 96
[2025-03-25 08:49] VITALS: BP 149/86; PULSE 60; RESP 18; TEMP 97.9; O2SAT 95
[2025-03-25] MEDS ORDERED: SUCR1SUS26 PO (10:25)
[2025-03-25] MEDS ORDERED: PANT40TA2 PO (10:25)
[2025-03-25] MEDS: POTASSIUM CHL 20 Meq TABLET PO ONE (10:27)
[2025-03-25] MEDS: THIAMINE 100mg/ml INJ (200mg/2ml VIAL) IV SCH (10:28)
[2025-03-25 11:21] VITALS: BP 149/86; PULSE 60; RESP 18; TEMP 97.9; O2SAT 95
--- NOTE | 2025-03-25 12:35 | ECG ---
[facility] Test Date: 2025-03-25 Test Time: 11:44:25 Pat Name: ZOLTAN CARBALLO Department: Respiratoy Room: 0240T A Gender: M Provider Network Manager: : [id number] Requested By: AMILCAR ROLAND Order Number: [id number] Reading MD: Romeo Guillen Measurements Intervals [place] Rate: 72 P: 37 SC: 190 QRS: -22 QRSD: 134 T: 19 QT: 415 QTc: 455 Interpretive Statements Sinus rhythm Right bundle branch block Baseline wander in lead(s) V1 Electronically Signed On 03-25-2025 20:01:17 PDT by Romeo Guillen Please click the below link to view image of tracing.
[2025-03-25 12:40] VITALS: BP 146/88; PULSE 83; RESP 18; TEMP 99; O2SAT 98
--- NOTE | 2025-03-25 15:11 | DVHDSRES ---
Discharge Summary Date of Admission Resident Creating Document: AMILCAR POLK RESIDENT Mar 23, 2025 at 09:05 Date of Discharge: Mar 25, 2025 Admitting Diagnosis GI bleed Labs/Diagnostic Data: Laboratory Results Test 03/25/25 10:32 03/25/25 05:51 03/24/25 16:20 03/23/25 18:57 POC Glucose 251 mg/dl (70-106) White Blood Count 4.0 10^3/uL (4.4-10.8) Red Blood Count 3.07 10^6/uL (4.5-5.90) Hemoglobin 11.4 g/dL (13.5-17.5) Hematocrit 31.7 % (41.0-53.0) Mean Corpuscular Volume 103.4 fL (80.0-100.0) Mean Corpuscular Hemoglobin 37.2 pg (28.0-32.0) Mean Corpuscular Hemoglobin Concent 36.0 g/dL (32.0-36.0) Red Cell Distribution Width 12.7 % (11.8-14.3) Platelet Count 74 10^3/uL (140-450) Mean Platelet Volume 9.1 fL (6.9-10.8) Neutrophils (%) (Auto) 64.7 % (37.0-80.0) Lymphocytes (%) (Auto) 20.0 % (10.0-50.0) Monocytes (%) (Auto) 8.9 % (0.0-12.0) Eosinophils (%) (Auto) 6.2 % (0.0-7.0) Basophils (%) (Auto) 0.2 % (0.0-2.0) Neutrophils # (Auto) 2.6 10 ^3/uL (1.6-8.6) Lymphocytes # (Auto) 0.8 10 ^3/uL (0.4-5.4) Monocytes # (Auto) 0.4 10 ^3/uL (0-1.3) Eosinophils # (Auto) 0.2 10 ^3/uL (0-0.8) Basophils # (Auto) 0 10 ^3/uL (0-0.2) Nucleated Red Blood Cells 0.0 % Sodium Level 136 mmol/L (136-145) Potassium Level 3.4 mmol/L (3.5-5.1) Chloride Level 100 mmol/L (98-107) Carbon Dioxide Level 26 mmol/L (20-31) Anion Gap 10 (5-15) Blood Urea Nitrogen 11 mg/dL (9-23) Creatinine 0.99 mg/dL (0.700-1.30) Glomerular Filtration Rate Calc 85 mL/min (>90) BUN/Creatinine Ratio 11.1 (10.0-20.0) Serum Glucose 164 mg/dL (74-106) Calcium Level 7.8 mg/dL (8.7-10.4) Magnesium Level 1.6 mg/dL (1.6-2.6) Total Bilirubin 1.0 mg/dL (0.2-1.0) Aspartate Amino Transferase (AST) 50 U/L (13-40) Alanine Aminotransferase (ALT) 31 U/L (7-40) Alkaline Phosphatase 92 U/L (46-116) Troponin I High Sensitivity 4 ng/L (</=54) B-Type Natriuretic Peptide 129.46 pg/mL (0-100) Total Protein 6.1 g/dL (5.7-8.2) Albumin 2.9 g/dL (3.2-4.8) Prothrombin Time 12.0 sec (9.3-11.8) Prothrombin Time INR 1.15 (0.9-1.15) Hepatitis B Surface Antigen Negative (Negative) Hepatitis C Antibody Negative (Negative) Test 03/23/25 13:01 03/23/25 07:28 03/23/25 04:13 03/23/25 01:46 Plasma/Serum Blood Alcohol < 3.0 mg/dL (<10) Lactic Acid Level 1.8 mmol/L (0.4-2.0) Urine Color Light-yellow (Yellow) Urine Clarity Clear (Clear) Urine pH 6.5 (5.0-9.0) Urine Specific [place] 1.015 (1.001-1.035) Urine Protein 1+ (Negative) Urine Ketones Negative (Negative) Urine Blood 2+ /uL (Negative) Urine Nitrite Negative (Negative) Urine Bilirubin Negative (Negative) Urine Urobilinogen Normal mg/dL (Negative) Urine Leukocyte Esterase Negative /uL (Negative) Urine RBC 37 /hpf (0 - 3) Urine Microscopic WBC 2 /HPF (0-3) Urine Squamous Epithelial Cells Few /hpf (<5) Urine Bacteria None seen /hpf (None Seen) Urine Glucose 4+ mg/dL (Normal) Stool for White Cells None seen Urine Opiates Screen Neg (NEGATIVE) Urine Fentanyl Screen Neg (NEGATIVE) Urine Barbiturates Screen Neg (NEGATIVE) Urine Phencyclidine Screen Neg (NEGATIVE) Urine Amphetamines Screen Neg (NEGATIVE) Urine Benzodiazepines Screen Neg (NEGATIVE) Urine Cocaine Screen Neg (NEGATIVE) Urine Cannabinoids Screen Neg (NEGATIVE) Erythrocyte Sedimentation Rate 83 mm/hr (0-20) Hemoglobin A1c 11.0 % A1C (<5.7) C-Reactive Protein High Sensitivity 0.67 mg/dL (<1.0) Lipase 82 U/L (12-53) Other Laboratory Tests 03/25/25 05:51 Brief Hx & Hospital Course: Mr Trejo, a 64 year old male who came in with chief complain of black emesis. He has past medical history of type 2 diabetes noncompliant with medicines, significant alcohol abuse, h/o appendectomy, spine surgeries due to intervertebral disc problems presented to the ER due to coffee ground hematemesis, nausea, abdominal pain since 1 day. He ate sea food the day before. As per admission note, son is also having diarrhoea followed by eating sea- food.He reports the abdominal pain to be diffuse, gradual onset, constant, nonradiating. 4/10 intensity. He denies any black stool,fever, travel history. He has no chest pain, shortness of breath,fever or any other complaints. Patient was placed NPO and started on Protonix IV b.i.d. due to likely upper GI bleeding. Hemoglobin dropped to 10, railroad police officer was consulted and they performed an EGD which revealed sliding hiatal hernia, grade B esophagitis with ulcers, mild gastritis, distal esophageal varices, no signs of active bleeding. Patient was placed on Protonix b.i.d. and Carafate. Patient was also treated for alcohol withdrawal with benzodiazepines, IV fluids, thiamine. Patient has had significant clinical improvement from admission. She later experienced chest pain, pleuritic, EKG was unremarkable, troponins were normal, BNP was within normal limits. Patient stated feeling much better than on admission. Physical examination as below: General: Awake, alert, comfortable appearing, in no acute distress. HEENT: Head is normocephalic and atraumatic. Pupils are equal, round, and reactive to light. Extraocular muscles are intact. No nasal discharge. No facial trauma. Intraoral exam shows moist mucous membranes with no tonsillar enlargement or exudate. Neck: Supple with no cervical lymphadenopathy. Heart: Regular rate without murmur, rub, or gallop. Lungs: Equal breath sounds bilaterally with no wheezing, rales, or rhonchi. There is no chest wall tenderness or instability. Abdomen: No external sign of injury. Bowel sounds are present. Abdomen is soft, nontender. No rebound, no guarding, no rigidity. There are no palpable masses. There is no flank pain on exam. Extremities: Strong peripheral pulses. There is no clubbing, no cyanosis, and no edema. Skin: No rash. Neurologic: Cranial nerves II-XII intact without motor, sensory, or cerebellar deficit, no asterixis. Patient will be discharge home, will continue home medications as prescribed. He will continue taking Protonix 40 mg p.o. b.i.d., Carafate 1 g p.o. q.i.d. Follow-up with PCP in 1-2 weeks, he will also follow up with GI doctor within four weeks.. Patient verbalized understanding and agree with the DC plan, we spent over 30 minutes explaining the plan. Consults/Reason for consult GI doctor was consulted to upper GI bleed Operations or Procedures Patient: ZOLTAN TREJO Acct: [id number] : 1960 Loc: [facility] Age/Sex: 64/M Room: 0240T / Bed: A Attending Phy: STEPHANIE KIM RESIDENT Operative Report DATE OF OPERATION: 03/24/25 PROCEDURE: Upper Endoscopy with biopsy. PREOPERATIVE INDICATION: The patient is a 64 -year-old male undergoing endoscopy for upper GI bleed POSTOPERATIVE DIAGNOSES: 1. Patient had a 2 cm sliding-type hiatal hernia with irregular squamocolumnar junction grade B linear erosive esophagitis with some superficial distal esophageal ulcer 2. There was trace prominence of the distal esophageal veins suspected trace esophageal varices 3. Mild antral gastritis with pre-pyloric antral gastric erosions and mild portal hypertension gastropathy of the proximal stomach 4. Otherwise normal examination up to the 2nd and 3rd part of the duodenum with no active bleeding no fresh or old blood in the upper GI tract PROCEDURE PERFORMED BY: Macario Bass GI NURSE: Emely SCOPE: Olympus videoendoscope. ASA CLASS: 3 PREOPERATIVE MEDICATIONS: Mac sedation, Dr. Adams PROCEDURE IN DETAIL: After obtaining an informed consent, the patient was placed on left lateral decubitus position. The patient was then sedated with the above medications. A bite block was placed between his teeth. The endoscope was then passed through the oropharynx, into the esophagus, and through the stomach and pylorus up to the second and third part of the duodenum. The endoscope was then withdrawn. The 2nd and 3rd part of the duodenal and the duodenal bulb were normal. Duodenal biopsies were obtained The pre-pyloric area antrum and body showed mild gastritis with pre-pyloric antral gastric erosions and gastropathy in the proximal stomach Gastric biopsies were obtained. Mild increase oozing was noted from biopsy sites. The endoscope was then withdrawn into distal esophagus. Patient had a 2 cm sliding-type hiatal hernia with irregular squamocolumnar junction grade B linear erosive esophagitis with a 1 cm distal esophageal ulcer Avery classification C with no stigmata of active bleeding No biopsies were obtained at this time because the patient had trace prominence of esophageal veins suspicious for trace early esophageal varices The remaining distal and proximal esophagus and oropharynx were unremarkable The patient tolerated the procedure well without difficulty. COMPLICATIONS : None SPECIMENS: Duodenal biopsies Gastric biopsies DISPOSITION: Transfer back to the floor Stable PLAN: 1. Await for biopsy result 2. Will place pt on Protonix 40 mg bid 3. Carafate suspension 1 g p.o. 4 times a day 4. Resume full liquid diet advance to soft mechanical 5. Outpatient follow up with me in 4-6 weeks to review results and discuss further management MACARIO BASS MD Mar 24, 2025 15:16 DICTATED BY:MACARIO BASS MD DICTATED DATE/TIME:03/24/251515 ELECTRONICALLY SIGNED BY:MACARIO BASS MD 03/24/251515 ELECTRONICALLY CO-SIGNED BY: [place] [id number] Ph: [phone] DIAGNOSTIC IMAGING Diagnostic Imaging Report : [id number] Signed PATIENT: ZOLTAN TREJO ACCT: [id number] UNIT: [id number] : 1960 LOC: ER ROOM / BED: / AGE / SEX: 64 / M ADM STATUS: REG ER SERVICE 2 ORDERING PHYSICIAN: JUNE BENEDICT DO PROCEDURE(s): ABPL - CT AB PEL WO CON-NO ORAL OR IV REASON: abd pain n/v/d ORDER NUMBER(s): [id number], ACCESSION NUMBER(s): [id number] Exam: CT CT AB PEL WO CON-NO ORAL OR IV History: abd pain n/v/d Comparison Study: None Technique: Multidetector spiral CT of the abdomen was performed from lung bases to pubic symphysis. Imaging was performed without IV contrast. Axial, coronal and sagittal multiplanar reformats were obtained from the axial data set by the technologist. Radiation Dose : 1. Abdomen/Pelvis: CTDIvol 17.66 mGy, DLP 1073.95 mGy*cm. Findings: Evaluation of solid organs is limited due to lack of intravenous contrast use. Lung Bases: No acute or significant lung base finding. Normal heart size. No pleural or pericardial effusion. Liver: Diffusely Cirrhotic hepatic morphology Without evidence of focal lesions. Gallbladder and Biliary Tree: 4.0 cm calcified gallstone. Spleen: Unremarkable Pancreas: The pancreas is grossly normal in appearance. Adrenal Glands: Unremarkable Kidneys: Kidneys are grossly normal without calculi or hydronephrosis. Bladder: Grossly unremarkable for degree of distention. Bowel: Moderate circumferential wall thickening and intramural edema of the gastroesophageal junction and lower esophagus. The stomach is grossly normal in appearance. Moderately distended small bowel segments with evidence of fecalization. No identifiable obstructive etiology. The appendix is not visualized; however, no secondary findings of acute appendicitis identified. Ascites: Absent Lymphadenopathy: No mesenteric, retroperitoneal or periportal lymphadenopathy. Abdominal Wall and Mesentery: Prominent venous collateral vessels consistent with sequelae of portal venous hypertension.. Vasculature: The visualized abdominal aorta is normal in size and caliber. Evaluation of abdominal and pelvic vessels is limited due to lack of intravenous contrast. Pelvic Organs: Unremarkable Musculoskeletal: No aggressive focal bony lesions, acute fractures or dislocation. Hardware status post L4 through S1 transforaminal lumbar interbody fusion with interbody disc spacers at the L4-L5 and L5-S1 levels. No evidence of complication. IMPRESSION: 1. Moderate circumferential wall thickening and intramural edema of the gastroesophageal junction and lower esophagus. 2. Moderately distended small bowel segments with evidence of fecalization. 3. Cirrhotic hepatic morphology with sequelae of portal venous hypertension. 4. Cholelithiasis. Radiation optimization: All CT scans at this facility use at least one of these dose optimization techniques: automated exposure control mA and/or kV adjustment per patient size (includes targeted exams where dose is matched to clinical indication) or iterative reconstruction. ATED BY: JOE CURRAN MD DICTATED DATE/TIME: 03/23/25309 SIGNED BY: JOE CURRAN MD SIGNED DATE/TIME: 03/23/25309 CC: Condition at Discharge: Good Final Diagnosis/Problems List Upper GI bleed Acute blood loss anemia Hematemesis due to cirrhosis with portal hypertension likely alcohol induced Infectous gastroenteritis Sliding hiatal hernia Antral gastritis Esophageal varices Cholelithiasis Liver cirrhosis Heavy alcohol use Discharge Disposition: Home Discharge Instruct/Medications Diet: Regular Activity: No Restrictions, As Tolerated Follow Up/Referral: fu with pcp dr. yoo on thursday in [place] [facility] Medications: continue protonix and carafate as prescribed Scheduled Acetaminophen W/ Codeine (Tylenol W/Cod #3), 1 TAB PO Q6HPRN Cyclobenzaprine Hcl (Cyclobenzaprine Hcl), 1 TAB PO QHSP Pantoprazole Sodium Sesquihydr (Protonix), 40 MG PO BID Sucralfate (Carafate Susp), 1 GM PO QID@0600,1130,1700,2200 Scheduled PRN Ondansetron Odt 4MG Tab (Zofran Po), 4 MG PO Q8HPRN PRN Discharge Statement: "Patient was advised to return to the ER or call 911 if any headaches, dizziness, shortness of breath, chest pain, abdominal pain, bleeding, fevers, or worsening of medical condition. Patient was counseled about treatment plan, medications, possible side effects, patientverbalized understanding. All questions were answered to the best of my ability. This discharge took greater then 30 minutes in planning, reviewing documentation, counseling the patient, and discussing with other team members." ASSESSMENT ASSESSMENT Assessment GI bleed Date of Service: Mar 25, 2025 Billing Provider: KASSIDY ADAMS MD Common Visit Codes: 95208-AWZ/OBS DISCH DAY >30min AMILCAR POLK RESIDENT Mar 25, 2025 15:11 KASSIDY ADAMS MD Mar 26, 2025 09:07
--- NOTE | 2025-03-25 22:02 | DVHPN2 ---
Progress Note - Dictate Date Seen: Mar 25, 2025 (Late entry Patient seen at 1:30 p.m.) Medical Necessity Reason Pt with a Central, PICC or Fol: No Subjective No new complaints Patient is tolerating diet His labs were stable EGD findings reviewed with patient 2 cm hiatal hernia, erosive esophagitis and gastropathy Underwent trace varices vital signs Vital Sign Date Time Temp Pulse Resp B/P (MAP) Pulse Ox O2 Delivery O2 Flow Rate FiO2 03/25/25 12:40 99.0 83 18 146/88 (107) 98 99.0 03/25/25 08:00 Room Air* 0 21 Total Intake and Output 03/24/25 03/24/25 03/25/25 15:00 23:00 07:00 Intake Total 150 ml 694 ml 240 ml Balance 150 ml 694 ml 240 ml medications Current Medications Medications Dose Ordered Sig/Kody Route Start Time Stop Time Status Last Admin Dose Admin Patient Own Medication 1 tab QHSP PO 03/23/25 22:00 UNV objective General: NAD, AAOX3 Chest: lung caceres clear to auscultation Heart: RRR, no murmur Abdomen: non-distended, soft nontender Extremities without clubbing cyanosis or edema Neuro he is alert oriented x3 with no focal deficit laboratory and microbiology Laboratory Tests 03/25/25 05:51 Test 03/25/25 05:51 Range/Units Serum Glucose 164 H 74-106 mg/dL Problems(with codes): (1) Gastritis (2) Esophagitis (3) Portal venous hypertension (4) Nausea and vomiting (5) Liver cirrhosis Prognosis Plan Discharge planning is in progress Patient needs Protonix 40 mg p.o. twice a day Carafate 1 g p.o. twice a day Advance diet as tolerated Patient has been counseled about discontinuing alcohol Outpatient follow up with me in 2-4 weeks to review results and discuss further management Plan discussed with: Patient, Other (Nurse) MACARIO BASS MD Mar 25, 2025 22:02
== END 2025-03-25 14:38 | disposition home or self-care (01) | DRG 280 ==
LOC: ER 01:17 → OVERFLOW 09:05 → TELE-EAST 17:59
PROVIDERS: ADMIT Internal Medicine; ATTEND Internal Medicine
PROC: 0DB68ZX Excision of Stomach, Via Natural or Artificial Opening Endoscopic, Diagnostic (ICD-10-PCS; 2025-03-24)
PROC: 0DB98ZX Excision of Duodenum, Via Natural or Artificial Opening Endoscopic, Diagnostic (ICD-10-PCS; principal; 2025-03-24 15:04)
DX: K70.30 Alcoholic cirrhosis of liver without ascites (principal); K22.11 Ulcer of esophagus with bleeding; K25.4 Chronic or unspecified gastric ulcer with hemorrhage; D62 Acute posthemorrhagic anemia; E87.20 Acidosis, unspecified; I85.11 Secondary esophageal varices with bleeding; K76.6 Portal hypertension; E11.65 Type 2 diabetes mellitus with hyperglycemia; K80.20 Calculus of gallbladder without cholecystitis without obstruction; E66.9 Obesity, unspecified; K29.70 Gastritis, unspecified, without bleeding; Z68.30 Body mass index [BMI] 30.0-30.9, adult; K31.9 Disease of stomach and duodenum, unspecified; K44.9 Diaphragmatic hernia without obstruction or gangrene; A09 Infectious gastroenteritis and colitis, unspecified; F10.90 Alcohol use, unspecified, uncomplicated; Y90.9 Presence of alcohol in blood, level not specified; Z90.49 Acquired absence of other specified parts of digestive tract; Z82.49 Family history of ischemic heart disease and other diseases of the circulatory system; E83.51 Hypocalcemia
CPT/HCPCS: 36415; 43239; 74176; 80053; 80307; 80320; 81001; 82962; 83036; 83605; 83690; 83735; 83880; 84484; 85014; 85018; 85025; 85048; 85610; 85652; 86141; 86803; 87040; 87045; 87086; 87340; 93005; G0378; J1815; J2405; J2470; J2704